=== PATIENT | male | born 1945 | race Caucasian/White ===

== ENCOUNTER 2016-12-28 13:35 | Inpatient (IN) | payer OTHER ==
--- NOTE | 2016-12-28 13:44 | EDPHY ---
H & P Time Seen by Provider: 12/28/16 13:38 HPI/ROS: CHIEF COMPLAINT: Difficulty speaking, confusion HISTORY OF PRESENT ILLNESS: 71-year-old male with a history of atrial fibrillation on aspirin presents with difficulty speaking and confusion. His last saw him acting normally at 12:25 p.m. this afternoon. When she got out of the shower at 12:45 p.m., he was acting confused and was having difficulty answering her questions appropriately. EMS arrival, he had have some aphasia and they noted left leg weakness. The patient does not think that he is having trouble answering questions, except that he feels delayed in answering the questions. He started taking Rythmol 5 days ago. He has been feeling somewhat dizzy and sleepy since then. He does not have a history of recent head trauma or prior CVA/TIA. REVIEW OF SYSTEMS: Constitutional: No fever, no chills Eyes: No visual changes ENT: No sore throat Respiratory: No cough, no shortness of breath Cardiac: No chest pain Gastrointestinal: No nausea, no vomiting, no abdominal pain Genitourinary: no dysuria Musculoskeletal: No leg pain or swelling Skin: No rash Neurological: No headache, no numbness, no weakness Psychiatric: No depression Past Medical/Surgical History: Atrial fibrillation Social History: Lives in own home with Smoking Status: Never smoked Physical Exam: General Appearance: Alert, pleasant, speech is clear, answers as questions appropriately, though his answers are delayed Eyes: Pupils equal and round, no conjunctival pallor or injection ENT, Mouth: Mucous membranes moist Neck: Normal inspection Respiratory: Lungs are clear to auscultation Cardiovascular: Gastrointestinal: Abdomen is soft and nontender Neurological: Alert, oriented x3, cranial nerves II through XII intact, motor 5 /5, sensory intact to light touch Skin: Warm and dry, no rash Extremities: Nontender, no pedal edema Psychiatric: Mood and affect normal Constitutional: Initial Vital Signs Temperature (C) 36.9 C 12/28/16 14:00 Heart Rate 93 12/28/16 14:00 Respiratory Rate 14 12/28/16 14:00 Blood Pressure 107/80 12/28/16 14:00 O2 Sat (%) 92 12/28/16 14:00 O2 Delivery Mode Room Air Allergies/Adverse Reactions: Penicillins Allergy (Severe, Verified 12/28/16 14:11) Other-Enter Comments Sulfa (Sulfonamide Antibiotics) [Sulfa(Sulfonamide Antibiotics)] Allergy (Mild, Verified 12/28/16 14:11) Itching Home Medications: Medication Instructions Recorded Digoxin [Lanoxin] 0.125 mg PO HS 11/23/15 Rosuvastatin Calcium [Crestor] 20 mg PO HS 11/23/15 fluvoxaMINE MALEATE [Luvox] 100 mg PO DAILY 11/23/15 Aspirin [Aspirin 81mg (*)] 162 mg PO HS 12/28/16 Cholecalciferol Vit D3 [Vitamin D3 1,000 units PO DAILY 12/28/16 (*)] Herbals/Supplements -Info Only 1 ea PO DAILY 12/28/16 Lewis-3 Fatty Acids [Fish Oil 1000 2,000 mg PO DAILY 12/28/16 mg (*)] Propafenone HCl [Propafenone HCl 425 mg PO BID 12/28/16 ER] Medical Decision Making - Diagnostics EKG Interpretation: EKG interpreted by me reveals atrial paced rhythm, IVCD, T-wave inversions in the inferolateral leads. ED Course/Re-evaluation: This patient presented as a stroke alert. I examined the patient in the hallway on his right arrival. He went directly to CT scan. I consulted Dr. Garcia, [facility] while the patient was in CT. Dr. Garcia interviewed the patient and feels that he is not an appropriate candidate for tPA. Feels that the altered mental status may be secondary to borderline hypotension related to recently starting Rythmol. IV normal saline 1 L given. The patient's blood pressure continued to be 70s over 50s. Another L of normal saline was given. Repeat EKG revealed no acute changes. Laboratory studies are completely unremarkable. An I-STAT was ordered for recheck. I suspect that the hypotension is related to Rythmol, given the patient has been dizzy and fatigued over the last 5 days since he started the medication. He has not been ill and I do not suspect infection/sepsis in this patient. I will continue to give IVF and observe and now. Dr. Irvin was consulted for admission and saw the patient in the emergency department. The patient's BP stabilized after IVF. Differential Diagnosis: Altered mental status including but not limited to hypoglycemia, infectious process, electrolyte abnormality, head injury and intoxicants. - Data Points Laboratory Results: Laboratory Results 12/28/16 13:40 12/28/16 13:40 Medications Given: Discontinued Medications Sodium Chloride (Ns) 1,000 mls @ 0 mls/hr IV ONCE ONE; Wide Open PRN Reason: Protocol Stop: 12/28/16 14:00 Last Admin: 12/28/16 14:12 Dose: 1,000 mls Sodium Chloride (Ns) 1,000 mls @ 0 mls/hr IV ONCE ONE PRN Reason: Wide Open Stop: 12/28/16 14:36 Last Admin: 12/28/16 14:37 Dose: 1,000 mls Sodium Chloride (Ns) 1,000 mls @ 0 mls/hr IV ONCE ONE; Wide Open PRN Reason: Protocol Stop: 12/28/16 15:17 Last Admin: 12/28/16 15:36 Dose: 1,000 mls Magnesium Sulfate (Magnesium Sulf 2 Gm (Premix)) 50 mls @ 50 mls/hr IV ONCE ONE Stop: 12/29/16 00:31 Last Admin: 12/29/16 00:30 Dose: 50 mls Potassium Chloride (Potassium Cl 10 Meq (Premix)) 100 mls @ 100 mls/hr IV Q1H DINORAH Stop: 12/29/16 01:44 Last Admin: 12/29/16 00:30 Dose: 100 mls Departure - Departure Disposition: [facility] Inpatient Acute Clinical Impression: Transient cerebral ischemia Qualifiers: Transient cerebral ischemia type: unspecified Qualified Code(s): G45.9 - Transient cerebral ischemic attack, unspecified Hypotension Qualifiers: Hypotension type: unspecified hypotension type Qualified Code(s): I95.9 - Hypotension, unspecified Condition: Serious
[2016-12-28 13:53] LABS: ABSOLUTE IMMATURE GRANULOCYTES 0.07 10^3/uL (0.00-0.10); ADD DIFF? NO; ADD MORPH? NO; ADD SCAN? NO; ATYPICAL LYMPHOCYTE FLAG 30 (0-99); FRAGMENT RBC FLAG 0 (0-99); HEMATOCRIT 49.1 % (40.0-51.0); HEMOGLOBIN 16.8 g/dL (13.7-17.5); LEFT SHIFT FLG 10 (0-99); LIPEMIA HEMOLYSIS FLAG 90 (0-99); MEAN CELL HEMOGLOBIN 32.7 pg (27.9-34.1); MEAN CELL HEMOGLOBIN CONCENTR. 34.2 g/dL (32.4-36.7); MEAN CELL VOLUME 95.5 fL (81.5-99.8); MEAN PLATELET VOLUME 10.4 fL (8.7-11.7); PLATELET CLUMPS FLAG 10 (0-99); PLATELET COUNT 272 10^3/uL (150-400); RED BLOOD CELL COUNT 5.14 10^6/uL (4.40-6.38); RED CELL DISTRIBUTION WIDTH 12.3 % (11.5-15.2)
[2016-12-28] MEDS ORDERED: NS 1,000 ML IV ONE ×3 (13:59→15:16)
--- NOTE | 2016-12-28 14:00 | CPEKG ---
Heart Rate: 71 RR Interval: 845 P-R Interval: 198 QRSD Interval: 132 QT Interval: 380 QTC Interval: 413 P [place]: 31 QRS [place]: 106 T Wave [place]: -73 EKG Severity - ABNORMAL ECG - EKG Impression: ATRIAL-PACED COMPLEXES EKG Impression: NONSPECIFIC INTRAVENTRICULAR CONDUCTION DELAY Electronically Signed By: Sonam Melo 28-Dec-2016 21:33:43
[2016-12-28 14:05] LABS: INR 1.03 (0.83-1.16); PROTIME(PATIENT) 13.4 SEC (12.0-15.0)
[2016-12-28 14:06] LABS: ANION GAP 13 mEq/L (8-16); APTT 25.8 SEC (23.0-38.0); CALCIUM 9.7 mg/dL (8.5-10.4); CARBON DIOXIDE 22 mEq/l (22-31); CHLORIDE 109 mEq/L (97-110); CREATININE 1.3 mg/dL (0.7-1.3); GLOMERULAR FILTRATION RATE 55; GLUCOSE 85 mg/dL (70-100); POTASSIUM 4.7 mEq/L (3.5-5.2); SODIUM 144 mEq/L (134-144)
--- NOTE | 2016-12-28 14:17 | CPEKG ---
Heart Rate: 81 RR Interval: 741 P-R Interval: 192 QRSD Interval: 136 QT Interval: 384 QTC Interval: 446 P [place]: 45 QRS [place]: 94 T Wave [place]: -83 EKG Severity - ABNORMAL ECG - EKG Impression: ATRIAL-PACED COMPLEXES EKG Impression: NONSPECIFIC INTRAVENTRICULAR CONDUCTION DELAY EKG Impression: MINIMAL ST DEPRESSION, DIFFUSE LEADS Electronically Signed By: Sonam Melo 28-Dec-2016 21:33:13
[2016-12-28 14:18] LABS: TROPONIN I < 0.012 ng/mL (0-0.034)
[2016-12-28] MEDS ORDERED: ONDANSETRON 4 MG/2 ML VIAL ONE (14:26)
[2016-12-28] MEDS ORDERED: ONDANSETRON DISINTEGRATING 4 MG TAB PO PRN (15:58)
[2016-12-28] MEDS ORDERED: ACETAMINOPHEN 325 MG TAB PO PRN (15:58)
[2016-12-28] MEDS ORDERED: ONDANSETRON 4 MG/2 ML VIAL IVP PRN (15:58)
--- NOTE | 2016-12-28 17:05 | GHP ---
[f rep st] HISTORY AND PHYSICAL DATE OF ADMISSION: 12/28/2016 HISTORY OF PRESENT ILLNESS: The patient is a 71-year-old gentleman with a history of atrial fibrill ation recently started on Rythmol for an increasing amount of atrial fibrillation seen on his pacema ker, who presented with an episode of decreased responsiveness. He presented as a possible concern for an aphasia with a stroke alert and perhaps there is some left-sided weakness. He does not reall y particularly endorse these things and but his does. He feels like his speech is largely back to normal. Since starting the Rythmol, he has felt "detached" and dizzy. He was found to be hypot ensive in the emergency department without fever or chills. He has a history of a workup for hypote nsion in the past. He does not have an underlying diagnosis of hypertension and takes no antihypert ensives or diuretics. He has not had nausea, vomiting, fever, chills. He has had a cough. There h as been no sputum. He is a nonsmoker. He denies any drug or alcohol use today. He was seen by [facility] who did not recommend thrombolysis on the basis of low NIH Stroke Scale. REVIEW OF SYSTEMS: Complete 10-point review of systems conducted and negative except as noted in th e HPI. PAST MEDICAL HISTORY: 1. Pacer for sinus pauses with syncope. His syncope has resolved since that pacemaker placement. 2. Atrial fibrillation. 3. Hyperlipidemia. 4. Depression. ALLERGIES: Penicillin and sulfa. HOME MEDICATIONS: Propafenone, aspirin, vitamin D3, digoxin, fluvoxamine, fish oil, rosuvastatin. SOCIAL HISTORY: Denies tobacco, alcohol or drugs. Lives in [place]. FAMILY HISTORY: Parents . PHYSICAL EXAM: VITAL SIGNS: Temp 37, blood pressure 107/80 initially, now 78/52, pulse in the 70s, breathing 14 times a minute, 93% on 2 L. GENERAL: No acute distress. Sclerae anicteric. Orophar ynx clear. Mucous membranes moist. NECK: Supple without lymphadenopathy or JVD. LUNGS: Show denise e crackles at the bases bilaterally right worse than left. HEART: S1, S2 without murmurs. ABDOMEN : Soft, nontender, nondistended. LOWER EXTREMITIES: Without edema. Calves nontender. SKIN: Wit hout rash. NEUROLOGIC: Upper extremity and lower extremity strength is 5/5 bilaterally. Sensation is 5/5 bilaterally. There is no cerebellar testing. There is no speech deficit. LABS: White count 7.3, hematocrit 49, platelets are 272,000. INR 1. Sodium 144, potassium 4.7, ch loride 109, bicarb 22, BUN 22, creatinine 1.3, his baseline is about 1.0. Glucose 85. Troponin les s than 0.012. Digoxin level less than 0.4. Chest x-ray, interpreted by me, shows possible retrocar diac infiltrate seen best on the lateral. There is a pacemaker in place. It is probably left-sided . EKG, interpreted by me, shows atrial-paced complexes, diffuse T-wave inversions. Noncontrast hea d CT is normal. I discussed the case Dr. Mey Melo. He had 2 EKGs in the emergency department, b oth of them showed T-wave inversions in the lateral leads. ASSESSMENT AND PLAN: A 71-year-old gentleman presents with an episode of altered sensation versus a phasia. 1. Question cerebrovascular accident. It is hard to make a case for this being a neurovascular lisy nt. I think he certainly is not a candidate for lytics. He is on a statin and an aspirin. We will check a hemoglobin A1c, Dopplers of his carotids, follow him on telemetry and the lipid panel in th e morning. 2. Episode of decreased responsiveness. It is not clear what is causing this. I think he just fel t kind of out of it. He denies drug use. Certainly this could be consistent with marijuana intoxic ation. I have sent a tox screen. We will hold his propafenone as this can cause dizziness and othe r things and we will follow. 3. Question pneumonia. The patient does have a leukocytosis, retrocardiac infiltrate. I will discuss with the radiologist and possibly start him on some antibiotics. 4. Hypotension. There is a low incidence of hypotension in association with propafenone. We will hold that. He already received 3 L of IV fluids. He is mentating. He is clinically slightly dry b y labs. 5. Prophylaxis. Pharmacologic prophylaxis as indicated. DISPOSITION: Observation status. /[id number]/MODL
[2016-12-28] MEDS ORDERED: ROSUVASTATIN CALCIUM 20 MG TAB PO SCH (21:00)
[2016-12-28] MEDS: DIGOXIN 125 MCG TAB PO SCH (21:10)
[2016-12-28] MEDS: ASPIRIN 81 MG CHEWABLE TAB PO SCH (21:10)
[2016-12-28] MEDS: ROSUVASTATIN CALCIUM 10 MG TAB PO SCH (21:11)
[2016-12-28 23:07] LABS: POTASSIUM 3.6 mEq/L (3.5-5.2)
[2016-12-28 23:08] LABS: MAGNESIUM 1.5 mg/dL (1.6-2.3)
[2016-12-28] MEDS ORDERED: MAGNESIUM SULF 2 GM/WATER 50 ML IV ONE (23:32)
[2016-12-28] MEDS: POTASSIUM Cl (KCl) 100 ML IV SCH (23:47)
[2016-12-29] MEDS: POTASSIUM Cl (KCl) 100 ML IV SCH (00:30)
[2016-12-29 05:55] LABS: ALANINE AMINOTRANSFERASE 74 IU/L (21-72); ALBUMIN 3.7 g/dL (3.5-5.0); ALKALINE PHOSPHATASE 55 IU/L (38-126); ANION GAP 10 mEq/L (8-16); APTT 27.5 SEC (23.0-38.0); ASPARTATE AMINOTRANSFERASE 38 IU/L (17-59); BILIRUBIN,TOTAL 1.8 mg/dL (0.1-1.4); CALCIUM 8.6 mg/dL (8.5-10.4); CARBON DIOXIDE 20 mEq/l (22-31); CHLORIDE 112 mEq/L (97-110); CHOLESTEROL 117 mg/dL (140-220); CHOLESTEROL/HDL RATIO 3.34 RATIO (1.00-4.97); CREATININE 0.9 mg/dL (0.7-1.3); GLOMERULAR FILTRATION RATE > 60; GLUCOSE 83 mg/dL (70-100); HIGH DENSITY LIPOPROTEIN 35 mg/dL (40-65); INR 1.05 (0.83-1.16); LDL/HDL RATIO 1.77 RATIO (1.00-3.64); LOW DENSITY LIPOPROTEIN 62 mg/dL (80-100); MAGNESIUM 2.7 mg/dL (1.6-2.3); NON-HIGH DENSITY LIPOPROTEIN 82 mg/dL (90-129); POTASSIUM 4.8 mEq/L (3.5-5.2); PROTIME(PATIENT) 13.6 SEC (12.0-15.0); SODIUM 142 mEq/L (134-144); TOTAL PROTEIN 6.1 g/dL (6.3-8.2); TRIGLYCERIDE 104 mg/dL (40-150); VERY LOW DENSITY LIPOPROTEINS 20 mg/dL (8-25)
[2016-12-29 06:02] LABS: % IMMATURE GRANULYOCYTES 0.4 % (0.0-1.1); ABSOLUTE IMMATURE GRANULOCYTES 0.03 10^3/uL (0.00-0.10); ADD DIFF? NO; ADD MORPH? NO; ADD SCAN? NO; ATYPICAL LYMPHOCYTE FLAG 0 (0-99); FRAGMENT RBC FLAG 0 (0-99); HEMATOCRIT 42.2 % (40.0-51.0); LEFT SHIFT FLG 0 (0-99); LIPEMIA HEMOLYSIS FLAG 80 (0-99); MEAN CELL HEMOGLOBIN 32.4 pg (27.9-34.1); MEAN CELL HEMOGLOBIN CONCENTR. 33.2 g/dL (32.4-36.7); MEAN CELL VOLUME 97.7 fL (81.5-99.8); MEAN PLATELET VOLUME 10.4 fL (8.7-11.7); PLATELET CLUMPS FLAG 0 (0-99); PLATELET COUNT 195 10^3/uL (150-400); RED BLOOD CELL COUNT 4.32 10^6/uL (4.40-6.38); RED CELL DISTRIBUTION WIDTH 12.4 % (11.5-15.2)
[2016-12-29] MEDS ORDERED: Herbals/Supplements -Info Only PO SCH (09:00)
[2016-12-29] MEDS: OMEGA-3 FATTY ACIDS 1,000 MG CAP PO SCH (09:33)
[2016-12-29] MEDS: ENOXAPARIN 40 MG/0.4 ML SYR SC SCH (09:34)
[2016-12-29] MEDS: CHOLECALCIFEROL VIT D3 1,000 UNITS TAB PO SCH (09:34)
--- NOTE | 2016-12-29 12:41 | HOSPPROG ---
Hospitalist Progress Note Assessment/Plan: 71 yo M with hx of recurrent syncope as well as a fib and PPM placement pw AMS initially concerning for CVA now felt to be likely due to near syncope # acute encephalopathy: non focal neurologic exam and negative head ct personally reviewed, possibly related to ongoing arrythmic events as next # a fib: has had increasing episodes of a fib as an OP started on rythmol for that, since arrival has been having various rhythm abnormalities and suspect this is the etiology for above. Echo performed, cardiology consulted. Pacer interrogation pending. # atelectasis: without clear infiltrate or e/o pna, IS, ambulation # hld: continue statin # dispo: IP status, will need > 48 hrs stay for eval/mgmt of above Patient new to my care, old records reviewed and summarized as above. care plan reviewed with Dr. Cortez and multidisciplinary care team on rounds. Subjective: no significant overnight events, patient feeling ok this am Objective: Vital Signs Temp Pulse Resp BP Pulse Ox 36.8 C 86 15 76/59 L 98 12/29/16 12:00 12/29/16 12:00 12/29/16 12:00 12/29/16 12:00 12/29/16 12:00 Laboratory Results 12/29/16 05:20 12/29/16 05:20 12/28/16 12/29/16 12/30/16 05:59 05:59 05:59 Intake Total 3800 Output Total 800 Balance 3000 PT 13.6 SEC (12.0-15.0) 12/29/16 05:20 INR 1.05 (0.83-1.16) 12/29/16 05:20 awake alert nad anicteric op clear rrr no mrg cta b soft nt nd no cce warm dry well perfused oriented appropriate - Time Spent With Patient Time Spent with Patient: greater than 35 minutes Time Spent with Patient: Greater than 35 minutes spent on this patients care, greater than 50% of time spent counseling, educating, and coordinating care regarding the above mentioned plan. ICD10 Worksheet Patient Problems: Problems Problem Status Onset Prostate cancer Acute Transient cerebral ischemia Acute Hypotension Acute
[2016-12-29] MEDS ORDERED: TEARS/DEXTRAN 70/HYPROMELLOSE 15 ML OPHT.BTL EACHEYE PRN (12:53)
--- NOTE | 2016-12-29 13:02 | ECHO ---
[id number] + + [address] : : [place] [address] : : [phone] + + Adult Echocardiographic Report + -------+ :Name: AR SUNG LStudy Date: 12/29/2016 10:38 AM : : Hospital Admission Number: [id number] Locati on: 241: :: 1945 Gender: Male Height: 70 in : :Age: 71 yrs Race: WH Weight: 180 lb : :Reason For Study: Eval LV Fx : : BSA: 2.0 meter s2 : :History: Possible TIA, Pacemaker, Arrythmia : + -------+ MMode/2D Measurements \T\ Calculations IVSd: 0.98 cm LVIDd: 5.1 cm FS: 32.7 % Ao root diam: 4.0 cm LVPWd: 1.0 cm LVIDs: 3.4 cm EDV(Teich): 125.0 ml ACS: 2.1 cm ESV(Teich): 49.1 ml EF(Teich): 60.7 % Normal Measurement Values: + + :LVIDd (3.5-5.7cm) IVSd (0.6-1.1cm) LVPWd (0.6-1.1cm) Aortic Root (2.0-3.7cm)Left Atrium (1.5-4.0cm): :LV Vol(d) (76-115ml) LV Vol(s) (29-48ml) Ejec Fraction (50-65%)PV Juan F (0.6- 1.2m/s) TV Juan F (0.4-1.0m/s) : :MV E Juan F (0.8-1.0m/s)MV A Juan F (0.3-1.0m/s)LVOT Juan F (0.7-1.2m/s) Asc Ao Juan F ( 0.9-1.8m/s) : + + Doppler Measurements \T\ Calculations MV E max juan f: Ao V2 max: LV V1 max: PA V2 max: 61.2 cm/sec 119.4 cm/sec 75.0 cm/sec 65.2 cm/sec MV A max juan f: Ao max P.7 mmHgLV V1 max PG: PA max P.6 cm/sec 2.3 mmHg 1.7 mmHg MV E/A: 0.86 TR max juan f: 234.8 cm/sec TR max P.1 mmHg RAP systole: 5.0 mmHg RVSP(TR): 27.1 mmHg Left Ventricle The left ventricle is normal in size. There is normal left ventricular wall thickness. The left ventricular ejection fraction is normal. There is Doppler evidence for diastolic dysfunction. Ectopy is noted during the entire exam. Ejection Fraction = 61%. Right Ventricle The right ventricle is normal in size and function. There is a pacemaker lead in the right ventricle. Atria The left atrial size is normal. Right atrial size is normal. Mitral Valve The mitral valve is normal in structure and function. There is no evidence of mitral valve prolapse. There is no mitral valve stenosis. There is no mitral regurgitation noted. Tricuspid Valve There is mild tricuspid regurgitation. Right ventricular systolic pressure is normal. Aortic Valve The aortic valve is normal in structure and function. The aortic valve is trileaflet. There is no aortic stenosis. There is no aortic insufficiency. Pulmonic Valve The pulmonic valve is normal in structure and function. There is no pulmonic valvular regurgitation. Great Vessels The aortic root is normal size. Pericardium/Pleural There is no pericardial effusion. Conclusion A complete two-dimensional transthoracic echocardiogram was performed (2D, M-mode, Doppler and color flow Doppler). Frequent ectopy noted during the entire exam. The left ventricular ejection fraction is normal. Ejection Fraction = 61%. There is Doppler evidence for diastolic dysfunction. The left atrial size is normal. Normal appearing valvular structures. There is mild tricuspid regurgitation. Right ventricular systolic pressure is normal. There is no pericardial effusion. There is a pacemaker lead in the right ventricle. Final Reading Physician: Billy Vilchis signed on 12/29/2016 01:00 PM Ordering Physician: Raffy Irvin Performed By: Perry Leung, REJICS
--- NOTE | 2016-12-29 15:17 | GCON ---
[f rep st] CONSULTATION CARDIOLOGY CONSULTATION DATE OF CONSULTATION: 12/29/2016 REFERRING PHYSICIAN: Giorgi Cortez MD REASON FOR CONSULTATION: 1. Altered mental status. 2. Paroxysmal atrial fibrillation. 3. History of syncope with prior pacemaker implantation. 4. Multiple episodes of arrhythmia. 5. Coronary artery disease. 6. Hypotension. HISTORY OF PRESENT ILLNESS: This is a 71-year-old male, who is typically followed by my partner, Dr Michel Yusuf. He has a history of paroxysmal atrial fibrillation, cardioinhibitory syncope with p rior pacemaker implantation, non-flow limiting coronary artery disease, and a history of marginal bl ood pressure. The patient was admitted to the hospital yesterday for a possible stroke. He took a shower and, upon completion, began to feel strange. He did not have syncope. His heard him mo aning and went into the bedroom to find him lying on the bed. His eyes were open and he looked appr ehensive, but could not respond to her in any meaningful way. Ultimately, his symptoms began to res olve, but he felt very "slow" in his ability to answer questions. His was concerned that he mi ght be having a stroke. However, there were no obvious motor deficits. The patient was transported via EMS and underwent a rapid neurologic evaluation. There was not enough evidence for CVA to cons ider thrombolytic therapy. The patient had hypotension, with systolic pressures in the 70s. He was given intravenous saline for a total of 3 L. Ultimately, his symptoms resolved and have not recurr ed. There were no significant abnormalities on his head CT. Overnight, he has continued to demonst rate hypotension, with systolic pressures in the 90s to low 100s. The current noninvasive blood pre ssure demonstrated on his bedside monitor is 76/45 mmHg. He is awake, alert, and conversant without symptoms of lightheadedness. Earlier this week, the patient had been started on Rythmol SR 425 mg every 12 hours because of his frequent daily episodes of paroxysmal atrial fibrillation. He has not ed some fatigue. He has not been monitoring his blood pressure at home. He has not had any chest d iscomfort suggestive of angina. He has not had symptoms suggestive of CHF. PAST CARDIAC HISTORY AND TESTING: As mentioned, he has a history of cardioinhibitory syncope, with a positive tilt-table test in 2011, which led to implantation of a dual-chamber pacemaker. He exper ienced several episodes of syncope prior to his device implantation. Recent pacemaker interrogation s have demonstrated almost 10,000 mode switches per month for atrial arrhythmias. He is paced in th e atrium over 90% of the time, with very little in the way of ventricular pacing. He has a history of coronary artery disease. A coronary calcium score in 2011 demonstrated a total Agatston score of 951. A subsequent cardiac catheterization in October of 2011 demonstrated non-flow limiting CAD. He h ad a recent pharmacologic nuclear stress test earlier this month, which demonstrated a fixed inferio r defect with a question of partial reversibility. He saw Dr. Yusuf for followup, and his interpre tation was that this represented diaphragmatic attenuation. He has a history of paroxysmal atrial f ibrillation, as mentioned. Device interrogations have demonstrated that his episodes have been incr easing over the past year or so. Rythmol was initiated earlier this week. The patient has a CHADS2 VASc score of 1 based on his age, and he uses aspirin for thromboembolic prophylaxis. PAST MEDICAL HISTORY: In addition to the issues already mentioned, he has hyperlipidemia and depres corby. HOME MEDICATIONS: Consist of the previously mentioned propafenone, along with fish oil supplement, herbal supplement, vitamin D, aspirin 162 mg daily, Luvox 100 mg daily, Crestor 20 mg daily, and dig oxin 0.125 mg daily. ALLERGIES: Penicillin and sulfa. SOCIAL HISTORY: He is . His is with him in the room today. He is retired from office- based work. He is a nonsmoker. He consumes 2-3 alcoholic beverages per evening. He is active and enjoys hiking. REVIEW OF SYSTEMS: Apart from the altered mental status that prompted this hospital admission, a 10 -point review was negative. PHYSICAL EXAMINATION: VITAL SIGNS: Heart rate 70 on the monitor, with atrial pacing and ventricula r sensing. Blood pressure 76/45 mmHg. O2 saturation 98% on room air. HEAD AND NECK: No scleral icterus. Mucous membranes moist. Carotid pulses 2+ without bruits. The re is no JVD. CHEST: Lung rajan clear to auscultation. CARDIAC: Regular rate and rhythm with normal S1, S2. There is no murmur or gallop. ABDOMEN: Soft, nontender with normoactive bowel sounds. No masses. EXTREMITIES: 2+ pulses in all 4 extremities. No peripheral edema. LABORATORY STUDIES: His troponin on admission was normal at 0.012. Sodium 142, potassium 4.8, BUN and creatinine 17 and 0.9. Total cholesterol is 117, with HDL 35, LDL 62, and triglycerides 104. H is CBC is normal. A toxicology screen was negative. His digoxin level is less than 0.4. ECG: His ECG demonstrates an atrial paced rhythm at 71 b.p.m. He has [place] conduction to the vent ricles. He has no Q-waves or bundle branch block issues. There are nonspecific T-wave abnormalitie s with biphasic to inverted T-waves in the inferior and precordial leads. ECHOCARDIOGRAM: An echocardiogram performed this morning demonstrates normal left ventricular systo lic function, with an ejection fraction of 61%. All chamber sizes are normal. He has normal-appear ing valvular structures, with only mild tricuspid regurgitation and normal estimated PA systolic pre ssure. IMPRESSION: This is a 71-year-old male with the cardiac history as outlined above. He was admitted with altered mental status, initially worrisome for a potential cerebrovascular accident. However, this has been ruled out. He continues to demonstrate moderate hypotension, and has been having int ermittent episodes of wide-complex beats. He has known paroxysmal atrial fibrillation and previousl y documented premature ventricular contractions. His most recent pacemaker interrogation demonstrat es hundreds of mode switches per day, leading to the recommendation by his primary city comptroller to s lizette [place]. Hypotension is not characteristically a problem with propafenone. He has a long hist ory of borderline blood pressure. In reviewing the office record, all of the available blood pressu re readings demonstrate systolic pressures ranging from 92-104 mmHg. However, he has demonstrated m ore pronounced episodes during his hospital stay. He has not had syncope. He does have a history o f coronary disease with non-flow limiting irregularity seen on cardiac catheterization in 2012. He had a recent pharmacologic nuclear stress test which was mildly abnormal, and was interpreted as dem onstrating diaphragmatic attenuation. He has no symptoms suggestive of angina. I think that the issues with his rhythm are simply a combination of his multiple episodes of atrial fibrillation per day in conjunction with occasional premature ventricular contractions. I do not th ink that this is particularly responsible for his hypotension, since he currently demonstrates and s ignificantly low blood pressure reading, and he has been essentially in his paced rhythm during the entire time that I was in the room. This does not represent any form of pacemaker malfunction. RECOMMENDATIONS: Would continue to hold his propafenone. Will start midodrine 5 mg 3 times daily t o help support his blood pressure. Discussed liberalization of his sodium intake and maintaining ad equate hydration. With respect to his atrial fibrillation, consideration could be given to a lower dose of propafenone or an alternate antiarrhythmic. Additionally, ablation has not been at least br iefly mentioned during a recent office visit. For now, will choose to support his blood pressure. Further diagnostic and therapeutic decisions await his clinical course over the next 12-24 hours. Suze Yusuf is assigned to cover the hospital tomorrow, and obviously knows him well. /[id number]/MODL
[2016-12-29] MEDS: MIDODRINE HCL 5 MG TAB PO SCH (16:25)
--- NOTE | 2016-12-29 16:47 | GCON ---
[f rep st] CONSULTATION CRITICAL CARE CONSULTATION DATE OF CONSULTATION: 12/29/2016 REASON FOR CONSULTATION: Intensive care unit evaluation and management of hypotension associated wi th neurologic changes. HISTORY: The patient is a 71-year-old gentleman who presented to the emergency room yesterday with altered mental status, aphasia, and possibly some left-sided weakness. He was evaluated by Tele-Darin rology. It was felt that there was no evidence of a stroke. CT scan of the head was negative. He was hypotensive in the Emergency Department, and it was felt that his hypotension caused his symptom s. This resolved with fluids and has not been a problem since admission. He does have a history of chronic atrial fibrillation, and significant cardiac ectopy. He has a pacemaker in place. He was recently placed on Rythmol, and feels that he has had some side effects with Rythmol affecting his m ental status. He does have a history of mild hypertension, but is taking no medications. Other medical problems i nclude hyperlipidemia and depression. He has no history of lung disease. He is not on diuretics. Since his admission to the Intensive Care Unit, he has done relatively well. He has had no further neurologic symptoms. Vital signs have remained stable, although he does have some intermittent hypo tensive episodes of unclear etiology. He is not necessarily aware of these. He is having no chest pain. He does have significant ongoing cardiac ectopy. He has been seen by Cardiology. Cardiac ec ho appeared normal. The ejection fraction is 61%. He does have some diastolic dysfunction. Right ventricular pressures are normal. PAST MEDICAL HISTORY: As outlined above in the HPI. OUTPATIENT MEDICATIONS: Propafenone, aspirin, Luvox, Crestor, and digoxin. SOCIAL HISTORY: The patient is . He is retired from office work. Tobacco and significant a lcohol are denied. FAMILY HISTORY: Positive for early coronary disease. REVIEW OF SYSTEMS: Negative, except as mentioned above. He denies chest pain, cough or mucus, shor tness of breath, abdominal problems or reflux, renal disease, thromboembolic disease, etc. PHYSICAL EXAMINATION: GENERAL: Reveals a pleasant gentleman who is resting comfortably in bed. VIOLETTE SIGNS: Currently blood pressure is 120/70. A number of hours ago, blood pressure was 80/60. H eart rate is approximately 90 and paced. There is occasional atrial fibrillation on the monitor. S ome PACs are also noted. He is on room air with saturations of 96%. He is afebrile. He is in no d istress. HEENT: Unremarkable for lymphadenopathy or thyromegaly. There is no jugular venous diste ntion. LUNGS: Clear bilaterally. HEART: Regular and paced. There is a systolic murmur, soft. N o gallop. ABDOMEN: Soft, nontender. Bowel sounds are present. EXTREMITIES: Without edema, cords or tenderness. NEUROLOGIC: Examination is nonfocal and intact. Mental status is normal. He is o riented x3. DIAGNOSTICS: Cardiac echo is as noted above. Chest x-ray is normal. There are no infiltrates. Th e heart size is borderline enlarged. A pacer is in place. CT scan of the head on admission was wit hin normal limits. Carotid Doppler ultrasound shows some minimal carotid plaque without flow limita tion. LABORATORY: White blood cell count is 7,900, hematocrit 42. Platelets are normal. PT and PTT are normal on admission. Basic metabolic panel is within normal limits. AST is 38 with an ALT of 74, m ildly elevated. Cholesterol is 117. TSH is normal. Tox screen on admission was negative. Digoxin level was low at 0.4. ASSESSMENT: 1. Altered mental status associated with hypotension. This has now resolved. 2. History of cardiac syncope, requiring pacemaker. His underlying cardiac disease is associated w ith significant ectopy, although he is paced most of the time. He has been seen by Cardiology. No medication changes have been made other than the addition of midodrine to help support blood pressur e. There is no evidence of an acute coronary syndrome. 3. Stroke alert on admission. No evidence of stroke. Please see the comments under #1. 4. Metabolic: No significant issues identified. Digoxin level was low on admission. Magnesium wa s found to be low and has been replaced. 5. Deep vein thrombosis prophylaxis: On enoxaparin. 6. Gastrointestinal prophylaxis: None needed, eating. PLAN AND RECOMMENDATIONS: The patient will be kept in the Intensive Care Unit and monitored for now . Blood pressure will be monitored, as well as cardiac rhythm. Cardiology will continue to follow. Postural blood pressure readings can be obtained. Laboratory will be followed. Further plans and recommendations will be made based on his progress over the next 12-24 hours. The patient is being followed by the hospitalist. It seems the primary recommendations will be made by Cardiology, as h is cardiac status appears to be the major issue. /[id number]/MODL
[2016-12-29] MEDS: ASPIRIN 81 MG CHEWABLE TAB PO SCH (20:44)
[2016-12-29] MEDS: DIGOXIN 125 MCG TAB PO SCH (20:44)
[2016-12-29] MEDS: ROSUVASTATIN CALCIUM 10 MG TAB PO SCH (20:44)
[2016-12-30 01:48] LABS: HEMOGLOBIN A1C 5.5 % (4.0-6.0)
[2016-12-30 05:57] LABS: % IMMATURE GRANULYOCYTES 0.3 % (0.0-1.1); ABSOLUTE IMMATURE GRANULOCYTES 0.02 10^3/uL (0.00-0.10); ADD DIFF? NO; ADD MORPH? NO; ADD SCAN? NO; ATYPICAL LYMPHOCYTE FLAG 10 (0-99); FRAGMENT RBC FLAG 0 (0-99); HEMATOCRIT 41.5 % (40.0-51.0); HEMOGLOBIN 13.7 g/dL (13.7-17.5); LEFT SHIFT FLG 0 (0-99); LIPEMIA HEMOLYSIS FLAG 80 (0-99); MEAN CELL HEMOGLOBIN 31.7 pg (27.9-34.1); MEAN CELL VOLUME 96.1 fL (81.5-99.8); MEAN PLATELET VOLUME 10.3 fL (8.7-11.7); PLATELET CLUMPS FLAG 0 (0-99); PLATELET COUNT 191 10^3/uL (150-400); RED BLOOD CELL COUNT 4.32 10^6/uL (4.40-6.38); RED CELL DISTRIBUTION WIDTH 12.1 % (11.5-15.2)
[2016-12-30 06:04] LABS: ANION GAP 8 mEq/L (8-16); CARBON DIOXIDE 22 mEq/l (22-31); CHLORIDE 112 mEq/L (97-110); CREATININE 0.9 mg/dL (0.7-1.3); GLOMERULAR FILTRATION RATE > 60; GLUCOSE 85 mg/dL (70-100); POTASSIUM 4.4 mEq/L (3.5-5.2); SODIUM 142 mEq/L (134-144)
[2016-12-30] MEDS: ENOXAPARIN 40 MG/0.4 ML SYR SC SCH (08:57)
[2016-12-30] MEDS: OMEGA-3 FATTY ACIDS 1,000 MG CAP PO SCH (08:57)
[2016-12-30] MEDS: MIDODRINE HCL 5 MG TAB PO SCH ×3 (08:57→16:10)
[2016-12-30] MEDS: CHOLECALCIFEROL VIT D3 1,000 UNITS TAB PO SCH (08:57)
--- NOTE | 2016-12-30 12:52 | PDINTPN ---
Glue Line Operator Progress Note Assessment/Plan: Assessment/plan: 71 M with chronic afib, PPM, who started Rythmol recently and was admitted with hypotension, altered MS. Stroke alert was called but not considered CVA by tele neurology consult. BP improved with IVF and Rythmol held. He has had cardiac syncope in the past resulting in PPM. No evidence of sepsis, adrenal insufficiency, ACS. Continues to have frequent PVCs on telemetry. * Altered mental status- 2/2 hypotension. Resolved * Hypotension- resolved with IVF and low dose midodrine. Rythmol seems like a very unlikely culprit with hypotension reported in 1-10%. His BP this am prior to midodrine was about 100/70, so may consider trying without midodrine, but will defer to cardiology. Subjective: Feels well without CP, SOB, palpitations. No events. BP stable on midrodrine Objective: Vital Signs Temp Pulse Resp BP Pulse Ox 36.8 C 79 15 101/66 95 12/30/16 11:38 12/30/16 11:38 12/30/16 11:38 12/30/16 11:38 12/30/16 11:38 Laboratory Results 12/30/16 05:19 12/30/16 05:19 12/29/16 12/30/16 12/31/16 05:59 05:59 05:59 Intake Total 3800 950 Output Total 800 1500 Balance 3000 -550 PT 13.6 SEC (12.0-15.0) 12/29/16 05:20 INR 1.05 (0.83-1.16) 12/29/16 05:20 Physical Exam - Physical Exam General Appearance: WD/WN, alert, no apparent distress EENT: PERRL/EOMI Neck: supple Respiratory: lungs clear, normal breath sounds, No respiratory distress Cardiac/Chest: regular rate, rhythm, edema, other (100% paced. Intermittent PVCs ) Abdomen: non-tender, soft, No distended Skin: normal color, warm/dry Lymphatic: no adenopathy Extremities: No pedal edema Neuro/Psych: alert, normal mood/affect, oriented x 3 ICD10 Worksheet Patient Problems: Problems Problem Status Onset Hypotension Acute Transient cerebral ischemia Acute Prostate cancer Acute
--- NOTE | 2016-12-30 14:12 | HOSPPROG ---
Hospitalist Progress Note Assessment/Plan: 71 yo M with hx of recurrent syncope as well as a fib and PPM placement pw AMS initially concerning for CVA now felt to be likely due to near syncope # acute encephalopathy: non focal neurologic exam and negative head ct personally reviewed, possibly related to ongoing arrythmic events and hypotension # hypotension: in the setting of recently being started on rhythmol, though that is rarely associated with hypotension, holding rhythmol for now, BP improved, started on midodrine # a fib: has had increasing episodes of a fib as an OP started on rythmol for that with a plan for possible ablation if this failed. Cardiology following and recs for today pending # atelectasis: without clear infiltrate or e/o pna, IS, ambulation # hld: continue statin # dispo: IP status, will need > 48 hrs stay for eval/mgmt of above care plan reviewed with Dr. Muir and multidisciplinary care team on rounds. Subjective: no significant overnight events, patient denies chest pain or near syncope Objective: Vital Signs Temp Pulse Resp BP Pulse Ox 36.8 C 79 15 101/66 95 12/30/16 11:38 12/30/16 11:38 12/30/16 11:38 12/30/16 11:38 12/30/16 11:38 Laboratory Results 12/30/16 05:19 12/30/16 05:19 12/29/16 12/30/16 12/31/16 05:59 05:59 05:59 Intake Total 3800 950 Output Total 800 1500 Balance 3000 -550 PT 13.6 SEC (12.0-15.0) 12/29/16 05:20 INR 1.05 (0.83-1.16) 12/29/16 05:20 awake alert nad anicteric op clear rrr no mrg cta b soft nt nd no cce warm dry well perfused oriented appropriate ICD10 Worksheet Patient Problems: Problems Problem Status Onset Hypotension Acute Transient cerebral ischemia Acute Prostate cancer Acute
[2016-12-30] MEDS: ROSUVASTATIN CALCIUM 10 MG TAB PO SCH (20:51)
[2016-12-30] MEDS: ASPIRIN 81 MG CHEWABLE TAB PO SCH (20:52)
[2016-12-30] MEDS: DIGOXIN 125 MCG TAB PO SCH (20:52)
[2016-12-31] MEDS: ENOXAPARIN 40 MG/0.4 ML SYR SC SCH (09:16)
[2016-12-31] MEDS: MIDODRINE HCL 5 MG TAB PO SCH ×3 (09:16→17:12)
[2016-12-31] MEDS: OMEGA-3 FATTY ACIDS 1,000 MG CAP PO SCH (09:16)
[2016-12-31] MEDS: CHOLECALCIFEROL VIT D3 1,000 UNITS TAB PO SCH (09:16)
[2016-12-31] MEDS ORDERED: MIDAZOLAM 2 MG/2 ML VIAL IVP PRN (11:44)
--- NOTE | 2016-12-31 11:53 | PDCARPN ---
Cardiology Progress Note Chief Complaint: Altered mental status now resolved...persistent atrial fibrillation Assessment/Plan: Assessment: 1. Altered mental state in patient with remote history of seizure... Query seizure activity with history incompatible with stroke or TIA. 2. Persistent atrial fibrillation with associated hypotension Plan ALYSON guided cardioversion in AM. will start Eliquis... Pt with history of GI blood loss on Pradaxa... 3. Hypotension likely related to 2. ABOVE. Plan: As above... 12/31/16 11:49 12/31/16 11:55 Subjective: I am feeling about the same Reviewed/Discussed With: family, hospitalist, multidisciplinary team Time Spent With Patient: 10 minutes Objective: Vital Signs (8 Hrs) Temp Pulse Resp BP Pulse Ox 12/31/16 08:00 36.6 C 96 14 124/90 H 90 L 12/31/16 04:00 79 16 101/73 91 L Intake/Output (24 Hrs) 12/30/16 12/31/16 01/01/17 05:59 05:59 05:59 Intake Total 950 2300 Output Total 1500 300 Balance -550 2000 Intake: Oral (ml) 950 2300 Output: Urine (ml) 1500 300 Urinal 1500 300 Other: Intake Quantity Yes Sufficient Number of Voids Urinal 1 4 Number of Stools Urinal 1 1 Result Diagrams: 12/30/16 05:19 12/30/16 05:19 Telemetry: Atrial fibrillation with V paced rhythm... Echocardiogram: No clot on transthoracic study ALYSON will be performed prior to cardioversion in AM - Physical Exam Constitutional: no apparent distress Eyes: PERRL, anicteric sclera Ears, Nose, Mouth, Throat: moist mucous membranes Cardiovascular: regular rate and rhythm, systolic murmur, other (rhythm regular because of V paced rhythm sometimes tracking at upper rate) ICD10 Worksheet Patient Problems: Problems Problem Status Onset Hypotension Acute Transient cerebral ischemia Acute Prostate cancer Acute
--- NOTE | 2016-12-31 12:39 | HOSPPROG ---
Hospitalist Progress Note Assessment/Plan: 71 yo M with hx of recurrent syncope as well as a fib and PPM placement pw AMS initially concerning for CVA now felt to be likely due to near syncope # acute encephalopathy: completely resolved, non focal neurologic exam and negative head ct personally reviewed, possibly related to ongoing arrythmic events and hypotension # hypotension: in the setting of recently being started on rhythmol, though that is rarely associated with hypotension, holding rhythmol for now, BP improved, started on midodrine # a fib: has had increasing episodes of a fib as an OP started on rythmol as an OP as above. Cardiology following and plans for ALYSON/CV in am. # atelectasis: without clear infiltrate or e/o pna, IS, ambulation # hld: continue statin # dispo: IP status, will need > 48 hrs stay for eval/mgmt of above Subjective: no significant overnight events, patient is currently feeling well, wants to have a shower Objective: Vital Signs Temp Pulse Resp BP Pulse Ox 36.6 C 90 20 116/71 95 12/31/16 08:00 12/31/16 12:00 12/31/16 12:00 12/31/16 12:00 12/31/16 12:00 Laboratory Results 12/30/16 05:19 12/30/16 05:19 12/30/16 12/31/16 01/01/17 05:59 05:59 05:59 Intake Total 950 2300 Output Total 1500 300 Balance -550 2000 PT 13.6 SEC (12.0-15.0) 12/29/16 05:20 INR 1.05 (0.83-1.16) 12/29/16 05:20 awake alert nad anicteric op clear rrr no mrg cta b soft nt nd no cce warm dry well perfused oriented appropriate ICD10 Worksheet Patient Problems: Problems Problem Status Onset Hypotension Acute Transient cerebral ischemia Acute Prostate cancer Acute
--- NOTE | 2016-12-31 13:37 | GPROG ---
[f rep st] PROGRESS NOTE This is an interim summary, I am assuming his care. The patient is a 71-year-old man, well known to me with a history of prior vasovagal syncope, as well as atrial fibrillation and sick sinus syndrom e, who received a dual-chamber pacemaker under my care several years ago. Unfortunately, he has had gradually increasing frequency of atrial fibrillation, for which we decided to start him on Rythmol for an increasing burden of AFib seen on the pacemaker. He presented after 5 days of that with tina sood for aphasia with a Stroke Alert. His found him to be awake, but unresponsive, unable to f ollow simple commands. He was found to be hypotensive in the emergency department and was treated f or that with fluid. He does not take antihypertensives or diuretics. He has not had nausea, vomiti ng, fever, or chills. He has not had long distance travel recently. He has not used drugs or alcoh ol. He was seen in the emergency department by [facility] as part of a Stroke Alert and the y did not recommend thrombolysis on the basis of a low NIH stroke scale. His 10-point review of sys tems was conducted and negative, except that the patient did seem to be somewhat confused and shaky per the patient's . The patient's had a sister with epilepsy and she felt like this episod e was similar. PAST MEDICAL HISTORY: Pertinent for a dual-chamber pacemaker with sick sinus syndrome and sinus demar ses with sinus arrest and cardioinhibitory syncope, which has resolved since his pacemaker placement . He has a history of paroxysmal atrial fibrillation, dyslipidemia, and depression. He is known to have an allergy to penicillin and sulfa. He is on aspirin, vitamin D3, digoxin, fluvoxamine, fish oil, and rosuvastatin. He does not abuse alcohol, tobacco, or other drugs. He lives in [place]. H is parents are . HOSPITAL COURSE: The patient has been admitted to the hospital and evaluated by my partners, where midodrine was recommended to help improve his blood pressure. Of note, is that this patient did hav e a history of grand mal seizure when he was in his 20s, but has not had a known seizure since that time. I am not sure if the patient may have experienced some kind of reduction in his seizure thres hold related to the propafenone, and that may have had a causative role. At any rate, he is present ly in atrial fibrillation with a ventricular paced event, and remains in AFib at the present time. Of note, is that he had been placed on Pradaxa when the drug initially came out and he had heme-posi tive stools, for which that drug was stopped because of GI bleeding. His diagnosis is acute encepha lopathy with hypotension and a nonfocal neurologic exam at present, and negative head CT. This may have been related to his arrhythmic event and hypotension, although I think it is possible that he m ay have had a petit mal seizure secondary to a lowering of his seizure threshold with the Rythmol. I think it should be stopped, I have not seen Rythmol cause hypotension in the past, so I think it i s unlikely that the Rythmol was causative of that issue. I think we should plan on placing the fatimah ent on Eliquis b.i.d. at a dose of 5 mg twice a day, once I have discussed that with the hospitalist and floor worker transfer bay. I think it would be reasonable to plan for a ALYSON cardioversion on Friday melody irby, as that will be difficult to arrange on December 31. I think it may be prudent to obtain a Neurolo gy consult, given the patient's history of seizure, as it may be important for him to have a workup for that issue, potentially with a sleep-deprived EEG or other testing. Thank you for allowing me t o participate in the care of this gentleman and we will plan to start his Eliquis and monitor for bl eeding. We discussed the risks and benefits of full dose anticoagulation in a patient with known ag e greater than 65 and now persistent atrial fibrillation. His [id number] score is at least 1 on t he basis of his age alone, and is likely 2 on the basis of nonobstructive vascular disease. Of cour se, that recommendation has to be tempered by the fact that he did have GI bleeding on Pradaxa. In my experience of the 4 novel oral anticoagulation agents, Pradaxa is most associated with GI bleedin g, and therefore, that is not particularly surprising, but certainly that would become more problema tic. If we start the Eliquis and he has GI bleeding, the drug would have to be discontinued. I think his long-term best plan is to have an AFib ablation, as I am nervous to start any true antia rrhythmic drugs because of the potential for subsequent hypotension and another neurological event. This certainly sounds like it was fairly dramatic when it was acutely occurring. /[id number]/MODL
[2016-12-31] MEDS: ROSUVASTATIN CALCIUM 10 MG TAB PO SCH (21:25)
[2016-12-31] MEDS: DIGOXIN 125 MCG TAB PO SCH (21:25)
[2016-12-31] MEDS: ASPIRIN 81 MG CHEWABLE TAB PO SCH (21:25)
[2016-12-31] MEDS: APIXABAN 5 MG TAB PO SCH (21:25)
[2017-01-01] MEDS ORDERED: NS 1,000 ML IV SCH (06:00)
[2017-01-01 07:05] LABS: INR 1.08 (0.83-1.16); PROTIME(PATIENT) 13.9 SEC (12.0-15.0)
[2017-01-01 07:06] LABS: APTT 28.9 SEC (23.0-38.0)
[2017-01-01 07:17] LABS: ANION GAP 10 mEq/L (8-16); CALCIUM 9.4 mg/dL (8.5-10.4); CARBON DIOXIDE 24 mEq/l (22-31); CHLORIDE 110 mEq/L (97-110); CREATININE 0.9 mg/dL (0.7-1.3); GLOMERULAR FILTRATION RATE > 60; GLUCOSE 90 mg/dL (70-100); POTASSIUM 4.4 mEq/L (3.5-5.2); SODIUM 144 mEq/L (134-144)
[2017-01-01] MEDS ORDERED: MIDAZOLAM 2 MG/2 ML VIAL IVP ONE (07:30)
[2017-01-01] MEDS ORDERED: ETOMIDATE 40 MG/20 ML INJ IVP ONE (07:30)
[2017-01-01] MEDS ORDERED: fentaNYL 100 MCG/2 ML INJ IVP ONE (07:45)
[2017-01-01] MEDS ORDERED: ATROPINE SULFATE 1 MG/10 ML SYR ONE (09:02)
--- NOTE | 2017-01-01 10:38 | CPEKG ---
Heart Rate: 84 RR Interval: 714 QRSD Interval: 98 QT Interval: 344 QTC Interval: 407 QRS [place]: 26 T Wave [place]: 251 EKG Severity - ABNORMAL ECG - EKG Impression: AFIB/FLUT AND V-PACED COMPLEXES EKG Impression: NONSPECIFIC T ABNORMALITIES, DIFFUSE LEADS Electronically Signed By: Josiah Pretty 01-Jan-2017 16:35:15
[2017-01-01] MEDS ORDERED: AMIODARONE A.FIB-LOAD DOSE(ORDER 1/3) IV ONE (11:00)
[2017-01-01] MEDS: APIXABAN 5 MG TAB PO SCH ×2 (11:27→21:05)
[2017-01-01] MEDS: MIDODRINE HCL 5 MG TAB PO SCH ×3 (12:38→17:05)
[2017-01-01] MEDS: CHOLECALCIFEROL VIT D3 1,000 UNITS TAB PO SCH (12:38)
[2017-01-01] MEDS: OMEGA-3 FATTY ACIDS 1,000 MG CAP PO SCH (12:38)
--- NOTE | 2017-01-01 13:48 | CPEKG ---
Heart Rate: 94 RR Interval: 638 QRSD Interval: 94 QT Interval: 336 QTC Interval: 421 QRS [place]: -2 T Wave [place]: -79 EKG Severity - ABNORMAL ECG - EKG Impression: AFIB/FLUT AND V-PACED COMPLEXES EKG Impression: NONSPECIFIC T ABNORMALITIES, DIFFUSE LEADS Electronically Signed By: Josiah Pretty 01-Jan-2017 16:33:45
--- NOTE | 2017-01-01 17:41 | HOSPPROG ---
Hospitalist Progress Note Assessment/Plan: 71 yo M with hx of recurrent syncope as well as a fib and PPM placement pw AMS initially concerning for CVA now felt to be likely due to near syncope 2/2 a fib /hypotension # a fib: with frequent episodes that have been noted on PM interrogation and possibly related to his encephalopathy. Went for GONZALES/CV today and currently appears to be in SR. Unclear plan per cardiology at this point, but reportedly patient also to have eval by EP during stay. # acute encephalopathy: completely resolved, presumed related to above as well as hypotension # hypotension: in the setting of recently being started on rhythmol, though that is rarely associated with hypotension, also with frequent a fib possible etiology, as above # atelectasis: without clear infiltrate or e/o pna, IS, ambulation # hld: continue statin # dispo: IP status, will need > 48 hrs stay for eval/mgmt of above' care plan reviewed with patients present at bedside Subjective: no signifcant overnight events, went for gonzales/cv this am, feels sleepy Objective: Vital Signs Temp Pulse Resp BP Pulse Ox 36.6 C 84 20 99/65 L 96 01/01/17 15:44 01/01/17 15:44 01/01/17 15:44 01/01/17 15:44 01/01/17 15:44 Laboratory Results 12/30/16 05:19 01/01/17 06:45 12/31/16 01/01/17 01/02/17 05:59 05:59 05:59 Intake Total 2300 200 Output Total 300 Balance 2000 200 PT 13.9 SEC (12.0-15.0) 01/01/17 06:45 INR 1.08 (0.83-1.16) 01/01/17 06:45 awake alert nad anicteric op clear rrr no mrg cta b soft nt nd no cce warm dry well perfused oriented appropriate ICD10 Worksheet Patient Problems: Problems Problem Status Onset Hypotension Acute Transient cerebral ischemia Acute Prostate cancer Acute
[2017-01-01 18:37] LABS: % IMMATURE GRANULYOCYTES 0.4 % (0.0-1.1); ABSOLUTE IMMATURE GRANULOCYTES 0.03 10^3/uL (0.00-0.10); ADD DIFF? NO; ADD MORPH? NO; ADD SCAN? NO; ATYPICAL LYMPHOCYTE FLAG 10 (0-99); FRAGMENT RBC FLAG 0 (0-99); HEMATOCRIT 46.8 % (40.0-51.0); HEMOGLOBIN 16.1 g/dL (13.7-17.5); LEFT SHIFT FLG 0 (0-99); LIPEMIA HEMOLYSIS FLAG 90 (0-99); MEAN CELL HEMOGLOBIN CONCENTR. 34.4 g/dL (32.4-36.7); MEAN PLATELET VOLUME 10.3 fL (8.7-11.7); PLATELET CLUMPS FLAG 10 (0-99); PLATELET COUNT 251 10^3/uL (150-400); RED BLOOD CELL COUNT 5.03 10^6/uL (4.40-6.38); RED CELL DISTRIBUTION WIDTH 12.1 % (11.5-15.2)
[2017-01-01] MEDS: ROSUVASTATIN CALCIUM 10 MG TAB PO SCH (21:05)
[2017-01-01] MEDS: SOTALOL HCL 80 MG TAB PO SCH (21:05)
[2017-01-01] MEDS: ASPIRIN 81 MG CHEWABLE TAB PO SCH (21:07)
--- NOTE | 2017-01-01 23:02 | CPEKG ---
Heart Rate: 79 RR Interval: 759 QRSD Interval: 154 QT Interval: 444 QTC Interval: 510 QRS [place]: -83 T Wave [place]: 81 EKG Severity - ABNORMAL ECG - EKG Impression: AFIB/FLUTTER AND VENTRICULAR-PACED RHYTHM Electronically Signed By: Rico Enamorado 02-Jan-2017 15:50:11
--- NOTE | 2017-01-02 02:37 | CPIP ---
[f rep st] INVASIVE CARDIAC PROCEDURE DATE OF PROCEDURE: 01/01/2017 PROCEDURE: Transesophageal echocardiogram-guided cardioversion. BRIEF CLINICAL HISTORY: Mr. Norman has recently developed increasing frequency and duration of atr ial fibrillation with approximately 80% atrial fibrillation burden over the last couple of weeks. T he patient developed paroxysmal and then persistent atrial fibrillation on the and per his dual -chamber pacemaker, he has been in persistent atrial fibrillation since that date. He was admitted with altered mental status which in retrospect is thought to be possibly related to propafenone/Ryth mol toxicity, possibly with lowering of his seizure threshold given his prior history of seizure. T he patient continues to be symptomatic with persistent atrial fibrillation, specifically with hypote nsion and fatigue. DESCRIPTION OF PROCEDURE: Since he has not been on anticoagulation, he was taken to the C[facility] and und erwent transesophageal echo which was negative for spontaneous echo contrast, evidence of left atria l appendage thrombus and the signaling within the left atrial appendage was greater than 40. X and Y plane evaluation the left atrium revealed prominent trabeculation within the left atrial appendage but no evidence of thrombus. The patient underwent elective direct current cardioversion with 300 joules of biphasic countershock delivered with patches in anterior and posterior position with subsequent return of the rhythm on t he patient's pacemaker interrogation to an atrial paced and ventricular sensed rhythm. However, he went in and out of, in an effect, paced sinus rhythm for approximately 20-30 minutes and then went b ack into atrial fibrillation, some of which is being tracked at upper rate response of the device. I have asked Dr. Hugo of the electrophysiology service to visit with the patient and discuss risks an d benefits of an AFib ablation, given the severity of his symptoms. Of note, is that the patient did have a history of GI bleeding with Pradaxa when given twice daily, specifically with guaiac-positive stools and therefore, alternative consideration for this particula r patient could be an AFib ablation followed by a mechanical device especially if recurrent such as a Watchman, especially if full-dose anticoagulation leads to recurrent GI bleeding. /[id number]/MODL
[2017-01-02 06:10] LABS: ANION GAP 9 mEq/L (8-16); CALCIUM 9.3 mg/dL (8.5-10.4); CARBON DIOXIDE 20 mEq/l (22-31); CHLORIDE 111 mEq/L (97-110); GLOMERULAR FILTRATION RATE > 60; GLUCOSE 86 mg/dL (70-100); POTASSIUM 5.1 mEq/L (3.5-5.2); SODIUM 140 mEq/L (134-144); SPECIMEN HEMOLYSIS 110
[2017-01-02] MEDS: CHOLECALCIFEROL VIT D3 1,000 UNITS TAB PO SCH (09:11)
[2017-01-02] MEDS: OMEGA-3 FATTY ACIDS 1,000 MG CAP PO SCH (09:12)
[2017-01-02] MEDS: APIXABAN 5 MG TAB PO SCH ×2 (09:12→21:26)
[2017-01-02] MEDS: MIDODRINE HCL 5 MG TAB PO SCH ×3 (09:12→16:57)
[2017-01-02] MEDS: SOTALOL HCL 80 MG TAB PO SCH ×2 (09:12→21:39)
--- NOTE | 2017-01-02 09:54 | HOSPPROG ---
Hospitalist Progress Note Assessment/Plan: DIAGNOSES: -Rapid atrial fibrillation, paroxysmal, causing hypotension -Acute hypotension -Acute encephalopathy likely at least partly related to the above -Chronic anticoagulation At this time he has a mostly paced rhythm but with some ectopy. He is tolerating the sotalol well so far. PLANS: -Continue sotalol -Continue display trimmer -Will review with Cardiology regarding further plans after he is seen by the EP Team - continue anticoagulant SUBJECTIVE: patient feels well at this time. Does not feel any symptoms of atrial fibrillation No shortness of breath or chest discomfort No fevers OBJECTIVE Vitals reviewed: stable Clinical Academic Allergist, my review: mostly paced with some that intermittent ectopy Exam: alert oriented skin warm dry color ok resps not labored lungs clear BSs heart irregular abd soft nondistended nontender, bowel sounds present limbs warm, no edema iv site ok Objective: Vital Signs Temp Pulse Resp BP Pulse Ox 36.4 C 79 16 95/71 L 97 01/02/17 08:00 01/02/17 08:00 01/02/17 08:00 01/02/17 08:00 01/02/17 08:00 Laboratory Results 01/01/17 18:23 01/02/17 05:20 01/01/17 01/02/17 01/03/17 06:59 06:59 06:59 Intake Total 200 1500 Balance 200 1500 PT 13.9 SEC (12.0-15.0) 01/01/17 06:45 INR 1.08 (0.83-1.16) 01/01/17 06:45 ICD10 Worksheet Patient Problems: Problems Problem Status Onset Hypotension Acute Transient cerebral ischemia Acute Prostate cancer Acute
--- NOTE | 2017-01-02 11:36 | CPEKG ---
Heart Rate: 79 RR Interval: 759 QRSD Interval: 154 QT Interval: 436 QTC Interval: 500 QRS [place]: -84 T Wave [place]: 84 EKG Severity - ABNORMAL ECG - EKG Impression: AFIB/FLUTTER AND VENTRICULAR-PACED RHYTHM Electronically Signed By: Josiah Pretty 02-Jan-2017 16:06:56
[2017-01-02] MEDS: ROSUVASTATIN CALCIUM 10 MG TAB PO SCH (21:26)
[2017-01-02] MEDS: ASPIRIN 81 MG CHEWABLE TAB PO SCH (21:26)
--- NOTE | 2017-01-02 23:26 | CPEKG ---
Heart Rate: 79 RR Interval: 759 QRSD Interval: 152 QT Interval: 432 QTC Interval: 496 QRS [place]: -87 T Wave [place]: 74 EKG Severity - ABNORMAL ECG - EKG Impression: AFIB/FLUT AND V-PACED COMPLEXES Electronically Signed By: Josiah Pretty 03-Jan-2017 06:10:55
[2017-01-03] MEDS: OMEGA-3 FATTY ACIDS 1,000 MG CAP PO SCH (09:08)
[2017-01-03] MEDS: CHOLECALCIFEROL VIT D3 1,000 UNITS TAB PO SCH (09:08)
[2017-01-03] MEDS: SOTALOL HCL 80 MG TAB PO SCH (09:09)
[2017-01-03] MEDS: APIXABAN 5 MG TAB PO SCH (09:09)
[2017-01-03] MEDS: MIDODRINE HCL 5 MG TAB PO SCH ×3 (09:09→16:22)
--- NOTE | 2017-01-03 11:21 | CPEKG ---
Heart Rate: 79 RR Interval: 759 P-R Interval: 192 QRSD Interval: 160 QT Interval: 448 QTC Interval: 514 P [place]: 0 QRS [place]: -83 T Wave [place]: 85 EKG Severity - ABNORMAL ECG - EKG Impression: VENTRICULAR-PACED COMPLEXES Electronically Signed By: Josiah Pertty 03-Jan-2017 13:57:08
[2017-01-03 12:37] VITALS: PULSE 80
--- NOTE | 2017-01-03 14:28 | PDCARPN ---
Cardiology Progress Note Assessment/Plan: Assessment: 1. Altered Mental Status on admit...likely related to Rythmol (propafenone toxicity. 2. Persistant Atrial Fibrillation: On admit A Fib with hypotension and fatigue. 3. Dual Chamber pacemaker in situ. Interrogation of PM showed on December 27 he developed paroxysmal A Fib, then progressed to persistent A Fib. 4. ALYSON/DCCV: He was taken to [facility] on 01/01/17 for ALYSON/DCCV. He has not been on anticoagulation due to history of GI bleed. ALYSON revealed no Thrombus. DCCV initially converted him to Sinus rhythm, then went in & out of paced sinus rhythm. After 20 to 30 minutes he went back into Atrial Fib. 5 EP Evaluation and consut was done by Markos Weber MD 01/01/17 late in the day. He recommended Sotalol loading 240 mg every 8 hours. Nick has tolerated the Sotolol with few side effects. He feels better on the Sotalol than he did on Rythmol. He has had hypotension, treated with Midodrine. His SBP has been running in the low 90's to 100's. He is asymptomatic with the blood pressure at this time. 6. ANTICOAGULATION with Eliquis. He did have a history of GI bleed on Pradaxa given twice daily. Dr Yusuf felt it safe to try Eliquis for anticoagulation. Should he have a GI bleed alternate treatment will be addressed. Consideration for Ablation therapy. Plan: Per Dr Weber, if he remains stable through the day he can be discharged on Sotalol 240 mg Q 12 hrs. Follow up in [address] Weber. Ablation DVD will be provided prior to discharge for his review prior to his visit with Dr Weber. At the time of office visit, they will further discuss EPS with possible Ablation procedure. 01/03/17 15:59 01/03/17 16:28 Subjective: I have been feeling good on the Sotalol. Reviewed/Discussed With: hospitalist, multidisciplinary team Time Spent With Patient: 20 minutes Objective: Vital Signs (8 Hrs) Temp Pulse Resp BP Pulse Ox 01/03/17 12:00 36.4 C 80 18 88/66 L 92 01/03/17 09:09 78 101/73 01/03/17 08:00 36.6 C 79 14 103/76 95 Intake/Output (24 Hrs) 07/06/17 07/07/17 07/08/17 05:59 05:59 05:59 Intake Total 1500 0 Balance 1500 0 Intake: Oral (ml) 800 IV Intake (ml) 0 IV Infused (ml) 700 Amiodarone HCl 100 ml @ 100 600 mls/hr IV ONCE ONE Rx #:[id number] Ns 1,000 ml @ TKO IV CONT 600 DINORAH Rx#:[id number] Other: Number of Voids Urinal 4 Number of Stools Urinal 1 Result Diagrams: 01/01/17 18:23 01/02/17 05:20 - Physical Exam Constitutional: WDWN, no apparent distress Cardiovascular: other (Rate regular V-Paced Rhythm per Dr Weber.), No no murmurs , No no rubs, No no gallops Respiratory: clear to auscultate bilat, No no crackles, No no wheezes Skin: no rashes, warm, no edema Neurologic: AAOx3 Psychiatric: cooperative, interactive ICD10 Worksheet Patient Problems: Problems Problem Status Onset Atrial fibrillation and flutter Acute Hypotension Acute Transient cerebral ischemia Acute Prostate cancer Acute
[2017-01-03 16:24] VITALS: BP 91/63; RESP 12; TEMP 98.2; O2SAT 96
--- NOTE | 2017-01-03 17:51 | PDDCSUM ---
Discharge Summary Discharge Summary: DISCHARGE DIAGNOSES: -Rapid atrial fibrillation, paroxysmal, causing hypotension -Acute hypotension -Acute encephalopathy likely at least partly related to the above -Chronic anticoagulation CONSULTANTS: Dr. Kirill Weber PROCEDURES: Transthoracic echocardiogram Transesophageal echocardiogram followed by electrical cardioversion which obtained sinus rhythm but ultimately was unsuccessful HOSPITAL COURSE SUMMARY: this patient with known history of atrial fibrillation had recently been started on propafenone. He came in with lightheadedness and near-syncope and was felt to have rapid AFib as possible cause these symptoms. He had not tolerated propafenone as an outpatient. As the patient did not have signs of ischemia or heart failure here at this time. He underwent a trans esophageal echocardiogram with electrical cardioversion which did bring him to sinus rhythm but it was short lived for only approximately 20 minutes at which time he is back in atrial fibrillation. Thereafter he was seen by Dr. Weber who recommended trial of sotalol. Sotalol was successful at controlling him with a sinus rhythm, however at 120 mg twice daily he felt somewhat lightheaded. We switched therefore to 80 mg twice daily. The plan will be to have the patient continue sotalol in the outpatient setting and follow up with Dr. Weber to reassess rhythm by his pacemaker as well as blood pressure monitoring. Depending on how the patient tolerates the sotalol and how effective it is consideration will be made for the potential of an ablation therapy procedure. The patient does have a history of GI bleeding while on Pradaxa which increases the prospects of ablation as a viable way to manage his situation. At this time he is on Eliquis for anticoagulation. PENDING TEST RESULTS: None MEDICATION CHANGES: Addition of Eliquis 5 mg twice daily Addition of sotalol 80 mg twice daily Addition of migraine for orthostatic hypertension FOLLOW-UP PLAN: With Dr. Markos Weber in 2 weeks Greater than 35 minutes bedside and care coordination time today
== END 2017-01-03 19:19 | disposition home or self-care (01) | DRG 308 ==
LOC: EDUNIT# → F2N 17:22 → F2W 01-01 09:21
PROVIDERS: ADMIT Internal Medicine; ATTEND Internal Medicine
PROC: 5A2204Z Restoration of Cardiac Rhythm, Single (ICD-10-PCS; principal; 2017-01-01)
DX: I48.1 Persistent atrial fibrillation (principal); G93.49 Other encephalopathy; I95.89 Other hypotension; E78.5 Hyperlipidemia, unspecified; Z79.01 Long term (current) use of anticoagulants; Z79.82 Long term (current) use of aspirin; Z95.0 Presence of cardiac pacemaker
CPT/HCPCS: 80305; 82947-QW; 97116-GP; 97161-GP; 97165-GO; 97530-GP; G0378; G8978-GP-CI; G8979-GP-CI; G8980-GP-CI; G8987-GO-CI; G8988-GO-CH; G8989-GO-CH; J0282; J0461; J1650; J2250; J2405; J3010

== ENCOUNTER → 2017-12-03 | Outpatient (CLI) | payer OTHER | LOC: FIMAGING 14:56 | PROVIDERS: ATTEND Family Medicine | DX: S09.90XA Unspecified injury of head, initial encounter (principal); R42 Dizziness and giddiness; Z79.01 Long term (current) use of anticoagulants ==

== ENCOUNTER 2018-04-28 07:28 | Day surgery (SDC) | payer OTHER ==
[2018-04-28] MEDS ORDERED: diphenhydrAMINE 25 MG CAP PO ONE (07:34)
[2018-04-28] MEDS ORDERED: ASPIRIN EC 325 MG TAB PO ONE (07:34)
[2018-04-28] MEDS ORDERED: NS 1,000 ML IV ONE (07:34)
[2018-04-28] MEDS ORDERED: DIAZEPAM 5 MG TAB PO ONE (07:34)
[2018-04-28] MEDS ORDERED: FAMOTIDINE 20 MG TAB PO ONE (07:34)
[2018-04-28 08:28] LABS: INR 0.99 (0.83-1.16); PROTIME(PATIENT) 13.3 SEC (12.0-15.0)
[2018-04-28 09:04] LABS: PLATELET COUNT 267 10^3/uL (150-400)
--- NOTE | 2018-04-28 09:20 | PDPROPOC ---
Sedation Plan of Care Sedation Plan of Care: mental status noted, patient educated of risks, benefits , alternatives, patient can tolerate sedation ASA Classification: ASA 2 Planned drugs: fentanyl, midazolam Mallampati Score: Class 2 Mallampati Reference Image: Patient passed 3-3-2 rule?: Yes
--- NOTE | 2018-04-28 09:20 | PDHPUP ---
History & Physical Update H&P update statement: This history and physical update is based on an assessment of the patient which was completed after admission or registration (within 24 hours), but prior to the surgery/procedure. H&P update: H&P reviewed & patient examined, no change in patient's condition since H&P completed
[2018-04-28] MEDS ORDERED: IOPAMIDOL (ISOVUE-370) 150 ML BTL IV ONE (09:23)
[2018-04-28] MEDS ORDERED: MIDAZOLAM 2 MG/2 ML VIAL ONE (09:23)
[2018-04-28] MEDS ORDERED: LIDOCAINE 1% 300 MG/30 ML SDV ONE (09:23)
[2018-04-28] MEDS ORDERED: fentaNYL 100 MCG/2 ML INJ ONE (09:23)
--- NOTE | 2018-04-28 09:39 | PDGENHP ---
History & Physical Chief Complaint: fatigue History of Present Illness: AF/fatigue, pre-op evaluation Pertinent Past, Social, Family History: hx of NICM, PAF Relevant Physical Exam: rrr s1 s2. cta-b. soft NT, NG. no edema Cardiorespiratory Assessment: normal O2 sat
[2018-04-28] MEDS ORDERED: ADENOSINE 90 MG/30 ML VIAL IV ONE (10:01)
[2018-04-28] MEDS ORDERED: BIVALIRUDIN 250 MG/5 ML VIAL IV ONE (10:01)
[2018-04-28] MEDS ORDERED: NITROGLYCERIN 1,500 MCG/15 ML VIAL MISC ONE (10:01)
[2018-04-28] MEDS ORDERED: ONDANSETRON 4 MG/2 ML VIAL IVP PRN (11:21)
[2018-04-28] MEDS ORDERED: HYDROCODONE/APAP 5/325 TAB PO PRN (11:21)
[2018-04-28] MEDS ORDERED: ATROPINE SULFATE 1 MG/10 ML SYR IVP PRN (11:21)
[2018-04-28] MEDS ORDERED: NITROGLYCERIN 0.4 MG BTL SL PRN (11:21)
[2018-04-28] MEDS ORDERED: OXYCODONE/APAP 5/325 TAB PO PRN (11:21)
--- NOTE | 2018-04-28 12:20 | CPIP ---
DATE OF PROCEDURE: 04/28/2018 INDICATION FOR PROCEDURE: Preop catheterization for maze procedure. PROCEDURE: 1. Nonselective right groin sheathogram. 2. Bilateral coronary angiography. 3. Left heart catheterization. 4. Left ventriculogram. 5. Fractional flow reserve of right posterior descending artery. HISTORY: Briefly, this is a 72-year-old male with history of cardiomyopathy, persistent atrial fibri llation who was evaluated Dr. Hugo, Dr. Dumont as an outpatient, and patient was deemed to be a suitabl e candidate for open Maze repair. Prior to this being done, the patient was consented for left heart catheterization to examine his underlying coronary anatomy. DESCRIPTION OF PROCEDURE: After informed consent was obtained, the patient was brought to [facility] where the right groin was prepped and draped in sterile fashion. Using lidocaine, a short 6-Honduran sheath in the right common femoral artery verified angiographically. Through the 6- Honduran sheath, a JL4 ca theter was advanced to the left coronary artery. Images of the left coronary artery revealed a long left main with mild 10% to 20%. disease. Left circumflex artery gave off a large marginal 1 proximal ly. Just after this take-off, there was about 30% to 40% tubular disease going to a marginal 2 arter y, which had 30% ostial disease. The AV groove circ was healthy and free of disease. The LAD was a long vessel, which gave off a small diagonal artery proximally. Distally, the vessel appeared to be healthy and disease with no significant obstructions. After these images were obtained, the JL4 catheter was removed. The JR4 catheter advanced to the rig ht coronary artery. Images of the right coronary artery revealed normal ostial RCA, mild 10% to 20% plaque disease in the proximal mid RCA. The RPLS appeared to be healthy, free of disease. The RP os tium had approximately 40% to 50% hazy area. Distally, the vessel appeared to be widely patent. After these images were obtained, the JR4 catheter was removed. The pigtail catheter was advanced in the left ventricle. LVEDP is approximately 15 mmHg. The left ventriculogram in the CID projection showed EF of approximately 40% with global hypokinesis. No pullback gradient between the LV and aort a. Pigtail catheter was removed wire. INTERVENTION REPORT: The patient was started on Angiomax bolus and drip. A JR4 6-Honduran guide blas ter was advanced and zeroed in the aorta with an FFR wire. After this performed, the JR4 catheter wa s advanced to the right coronary artery. The FFR wire was advanced distally past the lesion in the R PDA. FFR was then obtained, which showed a baseline of 0.98 of . The adenosine at 140 mcg /kg per minute was started. After 2 minutes of infusion of adenosine, the FFR reduced to a lowest le jessica of 0.92 before coming back up to 0.97. After 2 minutes infusion, the wire was pulled back. The guide catheter was removed after angiographic images revealed no perforation or dissection. Right gr oin was closed with 6-Honduran Angio-Seal. The patient tolerated the procedure well with no complicati ons. IMPRESSION: 1. Noncritical coronary artery disease mainly in the form of 30% proximal left circumflex artery and 40% to 50% ostial right posterior descending artery verified by fractional flow reserve to be non-cr itical. 2. Reduced ejection fraction of 40% and global hypokinesis. PLAN: The patient will continue with his workup with Dr. Dumont for maze ablation. No indication for bypass needed at this time. /[id number]/MODL
== END 2018-04-28 13:45 | disposition home or self-care (01) ==
LOC: FCATH 07:28
PROVIDERS: ATTEND Internal Medicine Cardiovascular Disease
DX: Z01.810 Encounter for preprocedural cardiovascular examination (principal); I48.1 Persistent atrial fibrillation; R53.83 Other fatigue; I42.9 Cardiomyopathy, unspecified; Z79.01 Long term (current) use of anticoagulants; Z79.82 Long term (current) use of aspirin; Z95.0 Presence of cardiac pacemaker
CPT/HCPCS: 93458; 93571; C1887; C1760; C1769; J0153; J0583; J1644; J2250; J3010; Q9967

== ENCOUNTER → 2018-06-17 | Outpatient (CLI) | payer OTHER | END | disposition home or self-care (01) | LOC: FIMAGING 11:08 | PROVIDERS: ATTEND Thoracic Surgery (Cardiothoracic Vascular Surgery) | DX: I48.91 Unspecified atrial fibrillation (principal); R05 Cough; R91.8 Other nonspecific abnormal finding of lung field ==

== ENCOUNTER → 2018-06-18 | Outpatient (CLI) | payer OTHER | END | disposition home or self-care (01) | LOC: CIMAGING 09:22 | PROVIDERS: ATTEND Thoracic Surgery (Cardiothoracic Vascular Surgery) | DX: I25.10 Atherosclerotic heart disease of native coronary artery without angina pectoris (principal); J40 Bronchitis, not specified as acute or chronic; I51.7 Cardiomegaly; Z95.0 Presence of cardiac pacemaker | CPT/HCPCS: 71250-PO ==

== ENCOUNTER → 2018-07-07 | Outpatient (CLI) | payer OTHER | LOC: FIMAGING 08:48 | PROVIDERS: ATTEND Thoracic Surgery (Cardiothoracic Vascular Surgery) | DX: I25.10 Atherosclerotic heart disease of native coronary artery without angina pectoris (principal); Z95.1 Presence of aortocoronary bypass graft; Z98.890 Other specified postprocedural states; Z86.79 Personal history of other diseases of the circulatory system ==

== ENCOUNTER 2018-08-28 15:37 | Observation (INO) | payer OTHER ==
[2018-08-28] MEDS ORDERED: NS 500 ML IV ONE (15:42)
[2018-08-28 16:07] LABS: PLATELET COUNT 255 10^3/uL (150-400)
--- NOTE | 2018-08-28 16:20 | EDPHY ---
H & P Stated Complaint: hypotension/fainted today cardiac hx Time Seen by Provider: 08/28/18 15:42 HPI/ROS: CHIEF COMPLAINT: Syncope HISTORY OF PRESENT ILLNESS: 73-year-old male with coronary artery disease, status post CABG 2 months ago presents with a syncopal episode. Long history of orthostatic hypotension. Especially since surgery, he has been more lightheaded when standing. Today he stood up and walked to a room in his house and began to feel dizzy and then had a syncopal episode. He does not think that he hit his head, but he has a headache 3/10. He does not usually get headaches. No other injuries. He currently feels back to normal. Immediately after the syncopal episode, he checked his blood pressure, 76/50. Heart rate was 70. 2 weeks ago amiodarone was discontinued. No other medication changes. No chest pain or shortness of breath. REVIEW OF SYSTEMS: complete 10 point ROS reviewed and is negative except for the noted elements in the HPI - Personal History Current Tetanus Diphtheria and Acellular Pertussis (TDAP): Unsure Tetanus Vaccine Date: 2004 - Medical/Surgical History Hx Asthma: No Hx Chronic Respiratory Disease: No Hx Diabetes: No Hx Cardiac Disease: Yes Hx Renal Disease: No Hx Cirrhosis: No Hx Alcoholism: No Hx HIV/AIDS: No Hx Splenectomy or Spleen Trauma: No Other PMH: AFIB, Atrial pacemaker, prostate CA 2016,bypass ablation - Social History Smoking Status: Never smoked - Physical Exam Exam: General Appearance: Alert, pleasant Head: No scalp tenderness or swelling Eyes: Pupils equal and round, no conjunctival pallor or injection ENT, Mouth: Mucous membranes moist Neck: Normal inspection, no midline tenderness, range of motion without pain Respiratory: Lungs are clear to auscultation Cardiovascular: Regular rate and rhythm Gastrointestinal: Abdomen is soft and nontender Neurological: Alert, oriented x3, cranial nerves II through XII intact, motor 5 /5, sensory intact to light touch Skin: Warm and dry Extremities: Nontender, no pedal edema Psychiatric: Mood and affect normal Constitutional: Initial Vital Signs Temperature (C) 36.4 C 08/28/18 15:42 Heart Rate 78 08/28/18 15:42 Respiratory Rate 18 08/28/18 15:42 Blood Pressure 108/86 H 08/28/18 15:42 O2 Sat (%) 99 08/28/18 15:42 O2 Delivery Mode Room Air Allergies/Adverse Reactions: Penicillins Allergy (Severe, Verified 08/28/18 15:40) Seizure Sulfa (Sulfonamide Antibiotics) [Sulfa(Sulfonamide Antibiotics)] Allergy (Mild, Verified 08/28/18 15:40) Itching propafenone [From Rythmol] Allergy (Verified 08/28/18 15:40) Seizure Home Medications: Medication Instructions Recorded Rosuvastatin Calcium [Crestor 20mg 20 mg PO HS 11/23/15 (*)] fluvoxaMINE MALEATE [Luvox 100 MG 100 mg PO DAILY 11/23/15 (*)] Acetaminophen [Tylenol 325mg (*)] 325 - 650 mg PO Q4HRS PRN tab 06/25/18 Aspirin [Aspirin 81mg (*)] 81 mg PO DAILY tab.chew 06/25/18 Zolpidem Tartrate [Ambien 5MG (*)] 5 mg PO HS PRN #30 tab 06/25/18 Multivitamins [Multivitamin (*)] 1 each PO DAILY 08/28/18 Warfarin Sodium [Coumadin 2.5MG 1.25 mg PO WE 08/28/18 (*)] Warfarin Sodium [Coumadin 2.5MG 2.5 mg PO SUMOTUTHFRSA 08/28/18 (*)] Midodrine HCl [Proamatine/Midodrin] 5 mg PO TID@0800,1200,1600 #90 tab 08/29/18 Medical Decision Making - Diagnostics EKG Interpretation: EKG interpreted by me reveals an atrial paced rhythm, rate 81, IVCD. Interpretation: Abnormal EKG ED Course/Re-evaluation: This patient presents after a recurrent syncopal episode, with a preceding history of orthostatic hypotension. Stat EKG reveals no evidence of ischemia or dysrhythmia. Pacemaker was interrogated and revealed normal sinus rhythm throughout the syncopal episode. Laboratory tests are unremarkable. Discussion with the patient, concern for repeated syncope and strong possibility of injury with syncopal episodes. Fortunately he did not hurt himself today. Will admit the patient to telemetry for further evaluation. The hospitalist service was consulted for admission. [facility] was consulted and will see the patient in the hospital. The patient was stable throughout his emergency department stay. renal case manager revealed a paced rhythm throughout and blood pressure remained normal. Differential Diagnosis: Differential diagnosis includes though is not limited to cardiac dysrhythmia, CVA, TIA, GI bleed, sepsis, hypoglycemia. - Data Points Laboratory Results: Laboratory Results 08/28/18 16:00 08/28/18 16:40 Medications Given: Discontinued Medications Sodium Chloride (Ns) 500 mls @ 0 mls/hr IV EDNOW ONE; Wide Open PRN Reason: Protocol Stop: 08/28/18 15:43 Last Admin: 08/28/18 15:56 Dose: 500 mls Sodium Chloride (Ns) 1,000 mls @ 100 mls/hr IV CONT DINORAH Stop: 08/28/18 23:44 Last Admin: 08/28/18 21:41 Dose: 1,000 mls Midodrine (Proamatine) 5 mg PO TID@0800,1200,1600 [facility] Stop: 02/25/19 15:59 Last Admin: 08/29/18 15:55 Dose: 5 mg Warfarin Sodium (Coumadin) 2.5 mg PO ONCE ONE Stop: 08/29/18 03:00 Last Admin: 08/29/18 03:51 Dose: 2.5 mg Warfarin Sodium (Coumadin) 2.5 mg PO [id number]@1600 [facility] Stop: 02/25/19 15:59 Last Admin: 08/29/18 15:55 Dose: 2.5 mg Point of Care Test Results: Chemistry 08/28/18 15:59 POC Troponin I 0.01 ng/mL ng/mL (0.00-0.08) Departure - Departure Disposition: [facility] Inpatient Acute Clinical Impression: Syncope Condition: Fair
[2018-08-28 17:13] LABS: INR 2.1 (0.83-1.16); PROTIME(PATIENT) 23.6 SEC (12.0-15.0)
[2018-08-28] MEDS ORDERED: ONDANSETRON 4 MG/2 ML VIAL IVP PRN (17:32)
[2018-08-28] MEDS ORDERED: ONDANSETRON DISINTEGRATING 4 MG TAB PO PRN (17:32)
[2018-08-28] MEDS ORDERED: ACETAMINOPHEN 325 MG TAB PO PRN (17:32)
[2018-08-28] MEDS ORDERED: NS 1,000 ML IV SCH (18:45)
--- NOTE | 2018-08-28 19:12 | GHP ---
[f rep st] HISTORY AND PHYSICAL DATE OF ADMISSION: 08/28/2018 CHIEF COMPLAINT: Syncope. PRIMARY BIBLE TEACHER: Kirill Yusuf MD. HISTORY OF PRESENT ILLNESS: A 73-year-old male with history of CAD, symptomatic atrial fibrillation status post 2-vessel CABG, and mitral valve repair with chordal reconstruction on June 19. Also, a Abernathy-maze procedure. Reports intermittent dizziness prior to his surgery, but has it almost daily now, specifically with standing. Today, he stood up from the chair and walked to the kitchen, felt very faint, leaned his head down on the counter and felt a little bit better, but, once he stood back up, he felt flushed and fell down. witnessed this. He had loss of consciousness for a few seconds. Denied prodromal palpitations, chest pain, nausea, vomiting, or diaphoresis. He exercises daily, at least 30 minutes a day, including cardiac rehab on the treadmill, stationary bike, or walking. He had one episode of dizziness with walking 2 weeks ago, but no chest pain or shortness of breath. Does not think he drinks enough fluids. He had been off amiodarone for 10 days. No other blood pressure medications. Denies fevers, chills, or sweats. No melena or hematochezia. Immediately after the syncopal episode, he checked his blood pressure. It was 75/60, and heart rate was 70. Pacemaker was interrogated in the ER without arrhythmia. Complaining of itching and small bumps intermittently, none today. REVIEW OF SYSTEMS: I completed a 10-point review of systems, negative except as noted in HPI. PAST MEDICAL HISTORY: 1. Atrial fibrillation, status post Abernathy-maze procedure. 2. CAD, status post CABG 2-vessel. 3. Ischemic cardiomyopathy, EF of 40%. 4. Moderate mitral regurgitation with rupture to A1, status post repair, moderate tricuspid regurgitation, hypotension, hyperlipidemia, and history of prostate cancer. PAST SURGERIES: CABG, mitral valve repair, prostatectomy, and pacemaker. FAMILY HISTORY: Paternal grandfather of a heart attack at age 57. SOCIAL HEALTH: retired sales relationship manager. Lives in [place] with . No tobacco, alcohol or illicits HOME MEDICATIONS: Luvox 100 mg daily. Ambien. Coumadin 1.25 mg p.o. Friday and 2.5 mg every other day. Crestor 20 mg daily. Multivitamin. Aspirin 81 mg daily. Tylenol. ALLERGIES: Penicillin, sulfa, and propafenone. PHYSICAL EXAMINATION: VITAL SIGNS: Temperature 36.4 and blood pressure 108/ 86. Orthostatics: Sitting 114/81, heart rate 73; standing 97/80, heart rate 93. Respirations 18 and 99% on room air. GENERAL: He is well appearing, in no acute distress. HEENT: PERRLA. Mildly dry mucous membranes. CV: Regular rate and rhythm. Substernal surgical incision is healing well. LUNGS: Clear. No crackles or wheezing. ABDOMEN: Soft, nontender, and nondistended with positive bowel sounds. : No Nelson. MUSCULOSKELETAL: 5/5 upper and lower extremity strength. NEUROLOGICAL: 2 through 12 intact. PSYCHIATRIC: Alert and oriented x3. LABS: WBC 7, hemoglobin 14, hematocrit 46, and platelets 255. INR 2.1. Sodium 137, potassium 4.9, chloride 105, carbon dioxide 23, creatinine 1 ( baseline 0.8) and glucose 103. LFTs pending. Calcium 8.9. Head CT: No intracranial hemorrhage. EKG is personally reviewed by me, A paced , nonspecific IVCD, and an old inferior infarct. Chest x-ray is personally reviewed by me, pacemaker in place, sternotomy wires, and left base atelectasis. ASSESSMENT/PLAN: 1. Syncope: suspect mildly dehydrated given positive orthostatics and mildly elevated creatinine. Will hydrate gently. He was scheduled for an echocardiogram later this month per Dr. Yusuf, so will check now given acute symptoms. Initial troponin was negative. Repeat and telemetry. Cardiology has been consulted. 2. Coronary artery disease: s/p 2-vessel coronary artery bypass graft. Continue statin. 3. Atrial fibrillation, status post Abernathy-maze procedure. No longer on amiodarone. INR is at goal. 4. History of prostate cancer, status post prostatectomy. 5. Diet: Cardiac. Deep venous thrombosis prophylaxis on Coumadin. DISPOSITION: Warrants observation admission for telemetry, echocardiogram, and cardiology consultation. /[id number]/MODL MTDD
--- NOTE | 2018-08-28 19:54 | CPEKG ---
Test Reason : OPEN Blood Pressure : / mmHG Vent. Rate : 081 BPM Atrial Rate : 000 BPM P-R Int : 193 ms QRS Dur : 115 ms QT Int : 424 ms P-R-T Axes : 056 000 035 degrees QTc Int : 493 ms Atrial-paced complexes Nonspecific intraventricular conduction delay Inferior infarct, old Confirmed by Sonam Melo ([id number]) on 08/28/2018 7:54:36 PM Referred By: Sonam Melo Confirmed By:Sonam Melo
[2018-08-29] MEDS ORDERED: WARFARIN SODIUM 2.5 MG TAB PO ONE (02:59)
[2018-08-29 04:44] LABS: INR 2.27 (0.83-1.16); PROTIME(PATIENT) 23.9 SEC (12.0-15.0)
--- NOTE | 2018-08-29 09:54 | ASMTCMCOM ---
CM Note CM Note Notes: Pt is a 73 y/o male who presented to the ED with syncop eand loss of consciousness; he has a long hx of orthostatic hypertension, CABG 2 months ago. 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 No PT/OT orders; no CM needs identified. CM will continue to follow for changes. D/C Plan: Anticipate independent Date Signed: 08/29/2018 09:53 AM Electronically Signed By:Mimi Chaudhary
[2018-08-29 12:10] VITALS: BP 98/69
--- NOTE | 2018-08-29 12:43 | ECHO ---
[email or web address] [address] [address] Main: [phone] Fax: Transthoracic Echocardiogram Name: AR SUNG MR#: [id number] Study Date: 08/29/2018 Study Time: 10:16 AM Date of : 1945 Age: 73 year(s) Height: 182.9 cm (72 in.) Weight: 77.11 kg (170 lb.) BSA: 1.99 m2 Gender: Male Examination: Echo Indication: recent CABG, MV ring; dizziness and syncope Image Quality: Adequate Contrast: Requested by: Laura Burns BP: 113 mmHg/78 mmHg Heart Rate: Rhythm: Indication: recent CABG, MV ring; dizziness and syncope Procedure Staff Partner Integration Planner: Criss Grey [facility] Reading Physician: Kirti Soto MD Requesting Provider: Conclusions: Normal size left ventricle. Mild concentric LV hypertrophy. Normal global systolic LV function. EF is 58 %. No regional wall motion abnormality. Mildly to moderately dilated right ventricle. Mildly reduced RV function. There is a pacemaker lead noted in the right ventricle. The right atrium is moderately dilated. An annuloplasty ring is noted in the mitral valve position. Mitral leaflets appear normal. There is a central jet of mild mitral regurgitation. The mean gradient across the repaired MV is 3mmHg. Right ventricular systolic pressure measures 33mmHg. Moderate to severe tricuspid valve regurgitation. Trivial pericardial effusion. compared to 06/24/2018 as well as pre cardiac surgery echo from February 2018 the degree of tricuspid regurgitation on today's study is moderate to severe previously severe. Preoperatively only mild. RV dilation and dysfunction are new compared with preop but were present postop. Measurements: Chambers Valvular Assessment AV/MV Valvular Assessment TV/PV Normal Normal Normal Name Value Range Name Value Range Name Value Range Ao Tiffany (MM): 4.1 cm (2.2 cm-3.7 AV Vmax: 1.07 m/s (1 m/s-1.7 TR Vmax: 2.65 mm/s ( - ) cm) m/s) TR PGmax: 28 mmHg ( - ) IVSd (2D): 1.1 cm (0.6 cm-1.1 AV maxP mmHg ( - ) syst. PAP: 33 mmHg ( - ) cm) LVOT Vmax: 0.73 m/s (0.7 m/s-1.1 PV Vmax: 0.57 m/s (0.6 m/s-0.9 LVDd (2D): 4.3 cm (4.2 cm-5.9 m/s) m/s) cm) STEW (Vmax): 2.6 cm2 ( - ) Patient: AR SUNG Study Date: 08/29/2018 Page 1 of 2 10:16 AM LVDs (2D): 2.5 cm (2.1 cm-4 MV E Vmax: 1.35 m/s ( - ) PV PGmax: 1 mmHg ( - ) cm) MV A Vmax: 0.66 m/s ( - ) LVPWd (2D): 1.1 cm (0.6 cm-1 MV E/A: 2.05 ( - ) cm) MV meanP mmHg ( - ) LVOTd 2.2 cm 2.2 cm mm MV PHT: 0.079 s ( - ) LVEF (BP): 58 % (>=55 %) MVA (PHT): 2.8 s ( - ) RVDd(2D): 4.0 cm (1.9 cm-3.8 cmmm) Continued Measurements: Chambers Valvular Assessment AV/MV Valvular Assessment TV/PV Name Value Name Value Name Value LADs: 3.9 cm MV DecTime: 229 m/s CVP (est.): 5 mmHg LADs Lon.3 cm MV VTI: 31.60 cm LA Area: 24.3 cm2 LA Volume: 67 ml LA Volume Index: 33.7 ml/m2 TAPSE: 1.0 cm RA Area: 24.8 cm2 Additional Vessels Name Value Ao Ascendin.5 cm Findings: Left Ventricle: Normal size left ventricle. Mild concentric LV hypertrophy. Normal global systolic LV function. EF is 58 %. No regional wall motion abnormality. Right Ventricle: Mildly to moderately dilated right ventricle. Mildly reduced RV function. There is a pacemaker lead noted in the right ventricle. Left Atrium: The left atirum is borderline dilated. Right Atrium: The right atrium is moderately dilated. There is a pacemaker lead noted in the right atrium. Mitral Valve: An annuloplasty ring is noted in the mitral valve position. Mitral leaflets appear normal. There is a central jet of mild mitral regurgitation. The mean gradient across the repaired MV is 3mmHg. Aortic Valve: The aortic valve is tri-leaflet. Trivial aortic valve regurgitation. No aortic valve stenosis is present. Tricuspid Valve: Tricuspid valve not well visualized. Right ventricular systolic pressure measures 33mmHg. Moderate to severe tricuspid valve regurgitation. Pulmonic Valve: Pulmonary valve not well visualized. Trivial pulmonic valve regurgitation. Aorta: Mildly dilated aortic root measuring 4.1 cm. Normal size ascending aorta measuring 3.5 cm. IVC: Normal size and course of the IVC. Pericardium: Trivial pericardial effusion. (No Signature Object) Patient: AR SUNG Study Date: 08/29/2018 Page 2 of 2 10:16 AM [id number]
--- NOTE | 2018-08-29 14:49 | GCON ---
[f rep st] CONSULTATION DATE OF CONSULTATION: 08/29/2018 CHIEF COMPLAINT: We have been asked by Dr. Burns to evaluate Mr. Norman with a chief complaint of syncope. HISTORY OF PRESENT ILLNESS: Mr. Norman is a 73-year-old gentleman with a history of coronary artery disease, atrial fibrillation, and mitral valve repair , who presented to the Emergency Department, on 08/28/2018, with an episode of syncope. The patient was in his usual state of health until approximately 2011 , when he began to experience episodes of dizziness. At that time, he underwent a tilt-table test which was notable for cardio inhibitory syncope. The patient ultimately had a pacemaker placed with significant improvement in his symptoms. He did reasonably well until May of 2019 when he underwent surgery for mitral valve repair, coronary artery bypass grafting x2, and a Abernathy Maze procedure. Postoperatively, he was noted to be hypotensive and was started on midodrine. Upon returning home, patient continued to note symptoms predominantly of orthostasis, but no evidence of carmen syncope. Shortly after returning home, he did discontinue Midodrine and approximately 10 days prior to arrival, he discontinued amiodarone as it may be contributing to his symptoms. On the day of admission, patient got up from his chair, walked into the kitchen , began to feel lightheaded. He put his head down on the counter and then later lost consciousness. He denied symptoms of chest pain or palpitations with the event. He was urged to go to the Emergency Department for further evaluation. In the Emergency Department, he was noted to have mild pre renal azotemia. The patient was noted to be orthostatic with a 20 mm drop in his systolic blood pressure, as well as an increase in his heart rate by 20 beats per minute. His pacemaker was evaluated demonstrating normal function and no significant arrhythmias. Troponins were within normal limits x2. We were consulted to help in the further management of this patient. The patient denies symptoms of chest pain, orthopnea, and PND. PAST MEDICAL HISTORY: 1. Atrial fibrillation status post Abernathy Maze procedure in 05/2018. 2. Coronary artery disease status post 2 vessel CABG in 05/2018. 3. Mitral regurgitation status post mitral valve repair in 05/2018. 4. Hyperlipidemia. 5. Prostate cancer. MEDICATIONS: 1. Luvox 100 mg daily. 2. Coumadin. 3. Multivitamin. 4. Aspirin 81 mg daily. ALLERGIES: 1. Penicillin. 2. Sulfa. 3. Propafenone. SOCIAL HISTORY: The patient is retired sales development coordinator. He lives in [place] with his . He does not smoke. He denies alcohol or illicit drug use. FAMILY HISTORY: Notable for coronary artery disease at an early age onset. REVIEW OF SYSTEMS: A 10-point review of systems is negative except as noted in the HPI. PHYSICAL EXAMINATION: GENERAL: The patient is resting comfortably in bed at this time. He does not appear to be in acute distress. VITAL SIGNS: Temperature is afebrile, pulse is 79, blood pressure is 98/69, respiratory rate is 19, SaO2 is 98% on room air. HEENT: Normocephalic, atraumatic. Extraocular muscles intact. NECK: No JVD. No bruits. LUNGS: Clear to auscultation bilaterally. CARDIOVASCULAR: Regular rate and rhythm. S1, S2. No murmurs, rubs, or gallops appreciated. ABDOMEN: Soft, nontender with normoactive bowel sounds. EXTREMITIES: No clubbing, cyanosis, or edema. SKIN : No evidence of rashes. NEUROLOGIC: Patient is awake, alert, and oriented x3. CT scan of the head demonstrated no evidence of intracranial hemorrhage. Echocardiogram demonstrated normal left ventricular size and systolic function. The mitral valve is status post repair. The mean gradient is 3 mmHg. There is no significant mitral regurgitation. The pulmonary artery pressure estimate is 33 mmHg. The right ventricle is dilated. There is evidence of tricuspid regurgitation. When compared to his postoperative study, there is no significant change. EKG demonstrates a paced rhythm. ASSESSMENT AND PLAN: Mr. Norman is a 73-year-old gentleman with: 1. syncope. The patient presents with an episode of syncope which is suggestive of profound orthostasis. On arrival in the Emergency Department, he was orthostatic by vitals. His laboratory demonstrated pre renal azotemia. His pacemaker was interrogated demonstrating no significant arrhythmias and normal function. The patient denied symptoms of chest pain suggestive of ischemia. His biomarkers were within normal limits. The patient's echocardiogram demonstrated normal left ventricular size and systolic function. His mitral valve appeared to sit and function normally. There is no significant aortic stenosis. Patient does have a history of autonomic insufficiency with a positive tilt-table test, perhaps contributing to his symptomatology. Will resume midodrine for hemodynamic support and mitigation of symptoms. The patient would likely not benefit from Florinef or liberalization of salt therapy given he does have some RV dysfunction and tricuspid regurgitation on his echocardiogram. He has followup scheduled with Dr. Yusuf as an outpatient. /[id number]/MODL MTDD
[2018-08-29] MEDS ORDERED: ZOLPIDEM TARTRATE 5 MG TAB PO PRN (15:14)
[2018-08-29] MEDS ORDERED: WARFARIN SODIUM 2.5 MG TAB PO SCH (16:00)
[2018-08-29] MEDS ORDERED: MIDODRINE HCL 5 MG TAB PO SCH (16:00)
[2018-08-29] MEDS ORDERED: ROSUVASTATIN CALCIUM 20 MG TAB PO SCH (21:00)
--- NOTE | 2018-08-30 04:10 | GDS ---
[f rep st] DISCHARGE SUMMARY DISCHARGE DIAGNOSES: 1. Syncope due to orthostatic hypotension. 2. Atrial fibrillation, status post Abernathy-maze procedure. 3. Coronary artery disease, status post 2-vessel coronary artery bypass graft. 4. Mitral regurgitation, status post mitral valve repair. 5. Hyperlipidemia. 6. Prostate cancer. HISTORY: The patient is a 73-year-old male who recently underwent a 2-vessel CABG, mitral valve repa ir with chordal reconstruction, and a Abernathy-maze procedure in May. He also has a long-standing hi story of orthostatic hypotension with a previous positive tilt table test. He was admitted to the [facility] and had profoundly positive orthostatic vital signs. His echocardiogram looked good. He was seen by Dr. Phillips. He recommended resuming midodrine, which he has been on with a positive response in the past. His pacemaker was interrogated without arrhythmia. DISCHARGE MEDICATIONS: Please see computerized record for full detailed list. New medications: Midodrine 5 mg p.o. t.i.d. ADDITIONAL DISCHARGE INSTRUCTIONS: Follow up with Dr. Yusuf as scheduled. Patient was seen and examined by me on the day of discharge. /[id number]/MODL
[2018-08-30] MEDS ORDERED: ASPIRIN 81 MG CHEWABLE TAB PO SCH (09:00)
[2018-09-02] MEDS ORDERED: WARFARIN SODIUM 2.5 MG TAB PO SCH (16:00)
== END 2018-08-29 16:20 | disposition home or self-care (01) ==
LOC: F2W 18:25
PROVIDERS: ADMIT Internal Medicine; ATTEND Internal Medicine
DX: I95.1 Orthostatic hypotension (principal); R55 Syncope and collapse; I25.10 Atherosclerotic heart disease of native coronary artery without angina pectoris; Z95.1 Presence of aortocoronary bypass graft; Z95.0 Presence of cardiac pacemaker; E78.5 Hyperlipidemia, unspecified
CPT/HCPCS: 70450; 93005; 93306; G0378; 84484-ER